=== PATIENT | male | born 1950 | race Caucasian/White ===

== ENCOUNTER 2017-10-22 07:31 | Day surgery (SDC) | payer MEDICARE, OTHER, SELFPAY ==
[2017-10-22] VITALS (14 sets, daily range): BP systolic 115–164; BP diastolic 49–83; PULSE 51–70; RESP 18–20; TEMP 36.6; O2SAT 92–98; BMI 32.4
--- NOTE | 2017-10-22 | IR_ITS ---
DATE OF CATHETERIZATION:10/22/2017 11:43 AM PROCEDURE: 1. Catheter placement in the right common iliac artery 2. Right common iliac artery angiogram with unilateral runoff to the right foot 3. Catheter placement in the left common iliac artery 4. Left common iliac artery angiogram with unilateral runoff to the left foot 5. Bare-metal stent deployment to the left common iliac artery 6. Post stent deployment left common iliac artery angiogram INDICATION: 1. Peripheral artery disease 2. Montezuma class III claudication Informed consent was obtained prior to the procedure. COMPLICATIONS: None ESTIMATED BLOOD LOSS: Blood loss less than 10 cc. TECHNIQUE:1% lidocaine used to anesthetize the right anterior aspect of the right wrist. The right radial artery was accessed via the Seldinger technique and a 6 Uzbek hydrophilic sheath was placed in the right radial artery. An arterial cocktail using heparin nitroglycerin and verapamil were administered intra-arterially. A BARGER catheter was placed in the transverse aorta and the wire was placed distally into the distal abdominal aorta. Using a long multipurpose catheter the catheter was advanced over the wire and used to cannulate the right common iliac artery. Right common iliac artery angiography with unilateral runoff to the foot was performed. The catheter was pulled back and placed into the left common iliac artery where angiography and unilateral runoff to the foot was performed. An additional 5000 units of heparin was administered intravenously. A 9 mm x 29 mm Aguilera pro balloon mounted stent was deployed in the ostial proximal segment of the left common iliac artery reducing the severe 80-90% stenosis to less than 10%. The balloon was brought back and deployed again at 16 shonda to post dilate. Excellent angiographic results were obtained. The closing ACT was 260 seconds. Patient artery received Plavix for the day. The apparatus was removed the sheath was removed good hemostasis was achieved using TR banding patient was transferred to the postop holding area in stable condition ANGIOGRAPHIC RESULTS: The right common iliac artery is calcified with tendon 20% stenoses. The right internal iliac artery is patent while the right external iliac artery has proximal 20-30% calcified stenosis. The right common femoral artery is normal. The right superficial femoral artery and right popliteal artery are occluded throughout their entire course. The right profunda femoris artery supplies a pregeniculate dense collateralization which then reconstitutes at the anterior tibialis artery and posterior tibialis artery. There is 2 vessel runoff below the knee from the 2 tibialis vessels into the right foot. The left common iliac artery has a proximal concentric 80% stenosis. The left internal iliac artery is widely patent. The left external iliac artery has a proximal 50% concentric stenosis. The left common femoral artery is calcified with no stenosis greater than 20%. The left superficial femoral artery is proximally subtotally occluded densely and severely calcified throughout its entire course. The occlusion extends throughout the popliteal artery. The left profunda femoris supplies a large collateral network which reconstitutes at the anterior and posterior tibialis artery. 2 vessel runoff below the knee is present from the tibialis arteries into the foot. Impression: Severe diffuse disease of the bilateral SFAs and bilateral popliteal arteries with chronic densely calcified occlusions Severe left common iliac artery stenosis Successful stenting the left common iliac artery 80% stenosis reduced to less than 10% with 1 bare-metal stent Dense collateral network which supplies the bilateral anterior and posterior tibialis arteries with bilateral 2 vessel runoff to
[2017-10-22 08:07] LABS: Basophils # 0.1 K/mm3 (0-0.2); Basophils % 0.6 % (0.1-2.0); Eosinophils # 0.2 K/mm3 (0.0-0.4); Eosinophils % 1.8 % (0.1-12.0); Hematocrit 44.5 % (42.0-52.0); Hemoglobin 15.4 g/dL (14.1-18.0); Lymphocytes # 1.7 K/mm3 (0.7-4.5); Mean Corpuscular HGB Conc 34.6 g/dL (31.8-35.4); Mean Corpuscular Hemoglobin 31.4 pg (27.0-31.2); Mean Corpuscular Volume 90.6 fl (80-94); Mean Platelet Volume 7.3 fl (7.4-10.4); Monocytes # 0.7 K/mm3 (0.1-1.0); Neutrophils # 5.8 K/mm3 (1.8-7.8); Neutrophils % 69.6 % (37.0-80.0); Platelet Count 187 K/mm3 (142-424); Red Blood Count 4.91 M/mm3 (4.60-6.20); Red Cell Distribution Width 14.1 % (11.5-17.5); White Blood Count 8.4 K/mm3 (4.8-10.8)
[2017-10-22 08:13] LABS: Anion Gap 10.7 mEq/L (5-15); Blood Urea Nitrogen 9 mg/dL (7-18); Carbon Dioxide 28 mmol/L (21.0-32.0); Chloride 90 mmol/L (98-107); Creatinine Clearance Estimated 82 mL/min (0-300); Creatinine,Serum 1.15 mg/dL (0.70-1.30); Estimated Glomerular Filt Rate 63 ml/min (>60); GFR (African American) 77 ML/MIN (>60); Potassium 3.7 mmoL/L (3.5-5.1); Sodium 125 mmol/L (136-145)
[2017-10-22 08:14] LABS: Glucose 98 mg/dL (74-106)
[2017-10-22 14:51] LABS: CATHL Activated Clotting Time 260 SEC (74-125)
== END 2017-10-22 15:30 | disposition home or self-care (01) ==
LOC: CATHLAB 07:33
PROVIDERS: PCP Family Medicine; Visit Provider Internal Medicine
DX: I73.9 Peripheral vascular disease, unspecified (principal); I70.223 Atherosclerosis of native arteries of extremities with rest pain, bilateral legs; I25.10 Atherosclerotic heart disease of native coronary artery without angina pectoris; I11.9 Hypertensive heart disease without heart failure; I65.29 Occlusion and stenosis of unspecified carotid artery
CPT/HCPCS: 36140; 37221; 75710; 80048; 85025; 85347; 99152; 99153; C1725; C1769; C1876; J1644; Q9966

== ENCOUNTER → 2017-10-30 08:19 | Outpatient (CLI) | payer MEDICARE, OTHER, SELFPAY ==
[2017-10-30 12:03] LABS: Alanine Aminotransferase 30 U/L (12-78); Alkaline Phosphatase 78 U/L (46-116); Aspartate Amino Transferase 19 U/L (15-37); Bilirubin,Direct 0.3 mg/dL (0.0-0.2); Bilirubin,Total 1.8 mg/dL (0.2-1.0); Chol/HDL Ratio 3.1 (1-3.5); Cholesterol 158 mg/dL (140-200); HDL Cholesterol 51 mg/dL (27-67); LDL Cholesterol 86 mg/dL (0-130); Total Protein,Serum 7.1 gm/dL (6.4-8.2); Triglycerides 103 mg/dL (30-200); VLDL Cholesterol 21 mg/dL (0-40)
== END ==
PROVIDERS: PCP Family Medicine; Visit Provider Internal Medicine
DX: E78.5 Hyperlipidemia, unspecified (principal)
CPT/HCPCS: 36415; 80061; 80076

== ENCOUNTER → 2017-11-03 15:24 | Outpatient (CLI) | payer MEDICARE, OTHER, SELFPAY ==
--- NOTE | 2017-11-03 15:24 | CI_ITS ---
Cerebrovascular Exam Indications: Follow-up carotid 433.10. IMPRESSIONS 1. The bilateral vertebral arteries are patent with normal antegrade flow. 2. Study suggests 50-69% stenosis involving the right internal carotid artery. 3. Study [id number]%(lower end of scale)stenosis involving the left internal carotid artery. 4. Study suggests severe stenosis involving the left external carotid artery. History: Coronary artery disease. Risk factors: Hypertension. Hyperlipidemia. Carotid duplex study. Complete study and Doppler flow study including spectral analysis, color and saucedo scale imaging. Height: Height: 172.7cm. Height: 68in. Weight: Weight: 90.7kg. Weight: 199.6lb. Body mass index: BMI: 30.4kg/m^2. Body surface area: BSA: 2.11m^2. Location: Vascular laboratory. Patient status: Outpatient. Tables: Arterial flow: + +--------+--------+ Location V sys V ed + +--------+--------+ Right CCA - proximal 108cm/s 22.8cm/s + +--------+--------+ Right CCA - distal 72.9cm/s 17.6cm/s + +--------+--------+ Right ECA 359cm/s 35.4cm/s + +--------+--------+ Right ICA - proximal 130cm/s 22.7cm/s + +--------+--------+ Right ICA - mid 181cm/s 41.5cm/s + +--------+--------+ Right ICA - distal 67.7cm/s 14cm/s + +--------+--------+ Right vertebral 39.3cm/s -------- + +--------+--------+ Left CCA - proximal 63.3cm/s 12.7cm/s + +--------+--------+ Left CCA - distal 41cm/s 10.5cm/s + +--------+--------+ Left ECA 428cm/s -------- + +--------+--------+ Left ICA - proximal 184cm/s 41.5cm/s + +--------+--------+ Left ICA - mid 182cm/s 33.7cm/s + +--------+--------+ Left ICA - distal 194cm/s 32.6cm/s + +--------+--------+ Left vertebral 66.2cm/s -------- + +--------+--------+ Velocity ratios: + + + + + + Right, V sys Right, V ed Left, V sys Left, V ed + + + + + + Max ICA/dist CCA 2.48 2.36 4.73 3.95 + + + + + + (Report amended ) Electronically signed by: Jm Sullivan [id number]
== END ==
PROVIDERS: PCP Family Medicine; Visit Provider Internal Medicine Cardiovascular Disease
DX: I65.23 Occlusion and stenosis of bilateral carotid arteries (principal)
CPT/HCPCS: 93880

== ENCOUNTER → 2018-06-14 14:11 | Outpatient (POV) | payer MEDICARE, OTHER, SELFPAY | PROVIDERS: Visit Provider Dermatology | DX: Z00.00 Encounter for general adult medical examination without abnormal findings (principal) ==

== ENCOUNTER → 2018-07-05 13:38 | Outpatient (POV) | payer MEDICARE, OTHER, SELFPAY | PROVIDERS: Visit Provider Dermatology | DX: Z00.00 Encounter for general adult medical examination without abnormal findings (principal) ==

== ENCOUNTER → 2019-01-14 09:54 | Outpatient (CLI) | payer MEDICARE, OTHER, SELFPAY ==
[2019-01-14 11:24] LABS: Alanine Aminotransferase 44 U/L (12-78); Albumin Level 3.9 gm/dL (3.4-5.0); Alkaline Phosphatase 72 U/L (46-116); Aspartate Amino Transferase 37 U/L (15-37); Bilirubin,Direct 0.3 mg/dL (0.0-0.2); Bilirubin,Indirect 1.4 mg/dL (0.0-0.9); Bilirubin,Total 1.7 mg/dL (0.2-1.0); Chol/HDL Ratio 2.7 (1-3.5); Cholesterol 160 mg/dL (140-200); HDL Cholesterol 60 mg/dL (27-67); LDL Cholesterol 73 mg/dL (0-130); Total Protein,Serum 6.9 gm/dL (6.4-8.2); Triglycerides 133 mg/dL (30-200); VLDL Cholesterol 27 mg/dL (0-40)
== END ==
PROVIDERS: Visit Provider Urology
DX: E78.5 Hyperlipidemia, unspecified (principal); I25.10 Atherosclerotic heart disease of native coronary artery without angina pectoris
CPT/HCPCS: 36415; 80061; 80076

== ENCOUNTER → 2019-12-25 14:52 | Outpatient (CLI) | payer MEDICARE, OTHER, SELFPAY ==
--- NOTE | 2019-12-25 15:02 | XR_ITS ---
PROCEDURE: XR FOOT RT MIN 3V CLINICAL INDICATION: RT FOOT PAIN Pain following injury COMPARISON: No exams were available for comparison FINDINGS: No fracture or dislocation. No lytic or blastic change. There is normal mineralization. The joint spaces are well-preserved. No significant degenerative/arthritic changes. No erosive changes evident. Other findings:There is a small calcaneal spur. There is minimal spurring of the distal talus IMPRESSION: No acute findings. Dictated by: Jm Sullivan MD 12/25/2019 16:23 Electronically signed by Jm Sullivan MD in [place] 12/25/2019 16:23
== END ==
PROVIDERS: PCP Family Medicine; Visit Provider Family Medicine
DX: M79.671 Pain in right foot (principal)
CPT/HCPCS: 73630

== ENCOUNTER 2020-01-08 11:46 | Emergency (ER) | payer MEDICARE, OTHER, SELFPAY ==
[2020-01-08 11:55] VITALS: BP 137/84; PULSE 68; RESP 18; TEMP 36.8; O2SAT 92; BMI 29.9
--- NOTE | 2020-01-08 12:04 | XR_ITS ---
PROCEDURE: XR FOOT RT MIN 3V Patient Age:69Y CLINICAL INDICATION: INJURY, REDNESS, SWELLING, PAIN injury to right foot 2 weeks ago persistent pain redness and swelling. COMPARISON: FTL3 FOOT-LT-3 VIEWS from 04/25/2015 XR FOOT RT MIN 3V from 12/25/2019 FINDINGS: Right foot AP lateral oblique view-three views No fracture or dislocation right foot.. Diffuse soft tissue swelling the foot is most pronounced dorsally over the midfoot.. Tarsals, metatarsals intact. Toes appear intact with no fracture evident. Toes intact with no fracture. No lytic or blastic change. There is normal mineralization. The joint spaces are well-preserved. There are some early hypertrophic changes minimal hypertrophic spur off lateral plantar margin of corner, base proximal phalanx great toe. There is also a near 10 mm plantar calcaneal spur noted IMPRESSION: Right foot-no fracture evident but Soft tissue swelling right foot-most evident dorsal aspect of foot overlying the metatarsals the Dictated by: Dilshad Edgar MD 01/08/2020 17:13 Electronically signed by Dilshad Edgar MD in [place] 01/08/2020 17:13
[2020-01-08 12:11] VITALS: BP 140/82; PULSE 72; RESP 20; O2SAT 98
--- NOTE | 2020-01-08 12:57 | CT_ITS ---
PROCEDURE: CT FOOT RT WO CON Patient Age:69Y CLINICAL HISTORY: pain, right foot redness pain swelling most evident top of foot. The heavy object fell on foot 2 weeks ago. The COMPARISON: ANKR3 ANKLE-RT-3 VIEWS from 09/13/2015 XR FOOT RT MIN 3V from 12/25/2019 XR FOOT RT MIN 3V from 01/08/2020 the TECHNIQUE: IV contrast utilized Helical axial images obtained through right foot with axial sagittal and coronal reformats. All CT scans at the facility use one or more dose reduction, viz: automated exposure control, ma/kV adjustment per patient size (including targeted exams where dose is matched to indication, i.e. head), or iterative reconstruction technique. FINDINGS: NECT right foot compared to 01/08/2020 and December 24 plain films Diffuse soft tissue swelling at the foot most evident dorsal. No radiopaque foreign body is seen here. I understand there is focal trauma. No fracture evident. Tarsals, metatarsals intact. Toes intact.. Joint spaces well maintained At the base of the 4th proximal phalanx there are some cystic areas seen on plain film but these are not readily apparent on CT the joint spaces well maintained At the base of the proximal phalanx great toe there is some hypertrophic spurring off the plantar/lateral aspect of from base proximal phalanx 4th toe at 1st MTP joint. Minimal slight fragment, appearance longstanding at the distal margin sesamoid bone plantar aspect 1st MTP joint At the ankle of note roughening and mild hypertrophic changes off tip of the medial malleolus. Associated roughening/of along medial margin of the talus. This was seen on 2016 plain films right ankle and appear stable. This reflects old trauma and injury. No acute findings. Incidental note plantar calcaneal spur a which measures nearly 1 cm length IMPRESSION: 1.Diffuse soft tissue swelling foot-most evident dorsal.. No radiopaque foreign body. 2.. No fracture nor dislocation.. No osseous erosion or destruction.. The. No with the the the 3..Mild degenerative changes foot and ankle.: .. Old injury with roughening hypertrophic changes off tip medial malleolus/and about medial ankle. Appears stable since at least 2016 radiograph .. Mild hypertrophic spurring off plantar/lateral margin proximal phalanx great toe,1st MTP joint 4. Plantar calcaneal spur (*If foot pain should persist/progress further consider MRI of foot-as it is more sensitive to bone contusion and microfractures than is CT) Dictated by: Dilshad Edgar MD 01/08/2020 15:22 Electronically signed by Dilshad Edgar MD in [place] 01/08/2020 15:22
--- NOTE | 2020-01-08 12:59 | PC.NURSE ---
Pt up to restroom
[2020-01-08 13:19] VITALS: BP 114/63; PULSE 66; O2SAT 95
--- NOTE | 2020-01-08 13:30 | PC.NURSE ---
Pt to rad.
--- NOTE | 2020-01-08 14:57 | HMH.EDLOEX ---
ED Disposition Clinical Impression: Ankle sprain and strain Disposition: Home, Self-Care Condition on Discharge: Good Instructions: Sprain Referrals: Tierra Snell MD [Primary Care Provider] - - Critical Care Critical Care Time: No Attestation: On 01/08/20, the high probability of a clinically significant, sudden or life threatening deterioration of the following system(s) required my full and direct attention, intervention and personal management. The time I documented below is in addition to time spent performing reported procedures but includes the following listed in this critical care notation. Medical Decision Making - Medical Records Medical records reviewed: Yes: I reviewed the patient's medical records. - Domo Inquiry Pt receiving controlled substance: No Vital Signs: 01/08/20 11:55 01/08/20 12:11 01/08/20 13:19 Temperature 98.2 F Temperature Source Oral Pulse Rate [Right Radial] 68 72 66 Respiratory Rate 18 20 Blood Pressure [Right Arm] 137/84 140/82 114/63 Blood Pressure Mean [Right Arm] 101 101 80 Blood Pressure Source [Right Arm] Automatic Cuff Automatic Cuff Automatic Cuff Blood Pressure Position [Right Arm] Sitting Sitting Sitting 02 Sat by Pulse Oximetry 92 L 98 95 Oxygen Delivery Method Room Air Room Air - Lab Data Lab results reviewed: Yes: I reviewed the patient's lab results. Orders (Tests/Meds): ED MEDICATIONS Discontinued Medications Generic Name Dose Route Start Last Admin Trade Name Freq PRN Reason Stop Dose Admin Oxycodone/Acetaminophen 1 each 01/08/20 13:20 01/08/20 13:23 Percocet 10mg/325mg Tablet PO 01/08/20 13:21 1 each ONCE ONE Administration ORDERS Category Date Time Status CT foot RT wo con Stat Cat Scan 01/08/20 12:57 Taken XR foot RT min 3V Stat Exams 01/08/20 12:04 Taken - CT Data CT Scan: Other Time Received: 14:[address] Reviewed: Yes: I have viewed the radiologist's interpretation Preliminary Findings: Normal/NAD Lower Extremity Injury HPI - General Chief Complaint: Extremity Injury, Lower Stated Complaint: AO [id number] right foot pain Time Seen by Provider: 01/08/20 14:50 Mode of Arrival: Ambulatory Source of Information: Patient Limitations: No Limitations Description of Symptoms (Recalled from ER Triage Doc. by RN): PT C/O RT FOOT PAIN AFTER DROPPING A JAR OF PICKLES ON HIS FOOT ON 12/24.PT REPORTS HX OF CAD AND STATES THAT THE BRUISING, SWELLING, REDNESS AND PAIN HAS ONLY INCREASED SINCE INITIAL INJURY. - History of Present Illness HPI Narrative: 6-year-old male presents the ED with right foot pain. Apparently about a week ago he dropped a jar of pickles on his foot and since then has been complaining of foot pain he did go see his primary care physician and they did do an x-ray of the foot but everything did come back within normal limits no evidence of fracture. Here in the ED still complaining of pain otherwise no other acute issues. - Related Data Home Medications Medication Instructions Recorded Confirmed aspirin 81 mg tablet,delayed 81 mg PO ONCE 09/17/17 04/18/19 release Previous Rx's Medication Instructions Recorded triamterene 37.5 1 tab PO QAM #90 tab 02/20/19 mg-hydrochlorothiazide 25 mg tablet clopidogrel 75 mg tablet 75 mg PO DAILY #90 tab 05/04/19 ropinirole 1 mg tablet 1 mg PO BID #180 tab 07/17/19 bisoprolol fumarate 5 mg tablet 5 mg PO DAILY #90 tab 07/18/19 amlodipine 10 mg-benazepril 20 mg 1 cap PO DAILY #90 cap 08/21/19 capsule atorvastatin 40 mg tablet 40 mg PO DAILY #90 tab 10/17/19 Allergies Allergy/AdvReac Type Severity Reaction Status Date / Time No Known Allergies Allergy Verified 10/17/19 08:44 [facility] History - Hepatitis A Screen Drug use history?: No High risk sexual behaviors?: No History of sexually transmitted infection?: No Currently employed?: No Childcare worker?: No Do you have indoor plumbing?: Yes Do you have electricity?: Y
[2020-01-08 15:21] VITALS: BP 114/63; PULSE 66; RESP 20; TEMP 36.9; O2SAT 95
== END 2020-01-08 16:20 | disposition home or self-care (01) ==
PROVIDERS: Emergency Provider Family Medicine; PCP Family Medicine
DX: S93.401A Sprain of unspecified ligament of right ankle, initial encounter (principal); W22.8XXA Striking against or struck by other objects, initial encounter; Y92.019 Unspecified place in single-family (private) house as the place of occurrence of the external cause; I25.10 Atherosclerotic heart disease of native coronary artery without angina pectoris; E78.5 Hyperlipidemia, unspecified; I10 Essential (primary) hypertension; Z87.891 Personal history of nicotine dependence; Z95.5 Presence of coronary angioplasty implant and graft; G25.81 Restless legs syndrome; Z90.09 Acquired absence of other part of head and neck; Z90.49 Acquired absence of other specified parts of digestive tract; Z79.899 Other long term (current) drug therapy
CPT/HCPCS: 29515; 73630; 73700; 99284

== ENCOUNTER → 2020-04-02 07:42 | Outpatient (CLI) | payer MEDICARE, OTHER, SELFPAY ==
--- NOTE | 2020-04-02 07:54 | XR_ITS ---
PROCEDURE: XR CHEST PORTABLE CLINICAL HISTORY: COVID COMPARISON: No exams were available for comparison FINDINGS: The cardiomediastinal silhouette and pulmonary vascularity are within normal limits. The lungs are clear without infiltrates, suspicious nodules, or pleural effusions. No acute bony abnormalities. IMPRESSION: No acute findings. Dictated by: Dr. Andi Orellana MD 04/02/2020 08:45 Dr. Andi Orellana MD in 04/02/2020 08:45
[2020-04-02 08:48] LABS: Basophils % 0.5 % (0.1-2.0); Eosinophils # 0.1 K/mm3 (0.0-0.4); Eosinophils % 1.5 % (0.1-12.0); Hematocrit 36.6 % (42.0-52.0); Hemoglobin 12.9 g/dL (14.1-18.0); Lymphocytes # 1.5 K/mm3 (0.7-4.5); Lymphocytes % 17.3 % (10-50); Mean Corpuscular HGB Conc 35.3 g/dL (31.8-35.4); Mean Corpuscular Hemoglobin 34.1 pg (27.0-31.2); Mean Corpuscular Volume 96.6 fl (80-94); Mean Platelet Volume 7.6 fl (7.4-10.4); Monocytes # 0.6 K/mm3 (0.1-1.0); Monocytes % 6.7 % (1.7-9.3); Neutrophils # 6.6 K/mm3 (1.8-7.8); Platelet Count 150 K/mm3 (142-424); Red Blood Count 3.79 M/mm3 (4.60-6.20); Red Cell Distribution Width 15.7 % (11.5-17.5); White Blood Count 8.9 K/mm3 (4.8-10.8)
== END ==
PROVIDERS: PCP Family Medicine; Visit Provider Family Medicine
DX: Z20.828 Contact with and (suspected) exposure to other viral communicable diseases (principal); E78.5 Hyperlipidemia, unspecified
CPT/HCPCS: 36415; 71045; 85025; U0003

== ENCOUNTER → 2020-05-01 12:46 | Outpatient (CLI) | payer MEDICARE, OTHER, SELFPAY ==
--- NOTE | 2020-05-01 12:47 | CA_ITS ---
APPROVED REPORT Tow Driver: Kitty Jones RVT Laterality: Bilateral Study Quality: Adequate Indications: Carotid stenosis Risk Factors Hypertension: Smoking Doppler Spectral Velocity Analysis ECA (R) 201.60/8.70 cm/s ECA (L) 92.90/14.90 cm/s dICA (R) 174.30/25.70 cm/s dICA (L) 188.50/22.60 cm/s Fredy (R) 152.60/21.60 cm/s Fredy (L) 178.70/26.50 cm/s pICA (R) 100.60/11.20 cm/s pICA (L) 383.10/37.30 cm/s dCCA (R) 68.40/9.60 cm/s dCCA (L) 48.30/10.00 cm/s pCCA (R) 73.60/8.10 cm/s pCCA (L) 80.30/9.30 cm/s Vert (R) 35.00/8.20 cm/s Vert (L) 62.80/9.80 cm/s ICA/CCA 2.55 ICA/CCA 7.93 Findings Study suggests 50-69% stenosis of the right internal cartoid artery unchanged from the 11/03/17 study. Study suggests 70-99% stenosis of the left internal cartoid artery unchanged from the 11/03/17 study. Antegrade flow seen bilateral vertebral arteries. Conclusion Study suggests 50-69% stenosis of the right internal cartoid artery unchanged from the 11/03/17 study. Study suggests 70-99% stenosis of the left internal cartoid artery unchanged from the 11/03/17 study. Antegrade flow seen bilateral vertebral arteries. Electronically signed by : Jm Sullivan MD 05/01/2020 17:02:50
== END ==
PROVIDERS: PCP Family Medicine; Visit Provider Urology
DX: E78.5 Hyperlipidemia, unspecified (principal); I11.9 Hypertensive heart disease without heart failure; I25.10 Atherosclerotic heart disease of native coronary artery without angina pectoris; I77.9 Disorder of arteries and arterioles, unspecified; R09.89 Other specified symptoms and signs involving the circulatory and respiratory systems; I65.23 Occlusion and stenosis of bilateral carotid arteries
CPT/HCPCS: 93880

== ENCOUNTER → 2020-06-08 09:51 | Outpatient (CLI) | payer MEDICARE, OTHER, SELFPAY | PROVIDERS: PCP Family Medicine; Visit Provider Urology | DX: J06.9 Acute upper respiratory infection, unspecified (principal); R05 Cough; Z03.818 Encounter for observation for suspected exposure to other biological agents ruled out | CPT/HCPCS: U0003 ==

== ENCOUNTER → 2020-06-10 11:01 | Outpatient (CLI) | payer MEDICARE, OTHER, SELFPAY ==
--- NOTE | 2020-06-10 11:07 | XR_ITS ---
PROCEDURE: XR CHEST 2V CLINICAL HISTORY: cough Cough and former smoker COMPARISON: CR XR CHEST PORTABLE from 04/02/2020 FINDINGS: The cardiomediastinal silhouette and pulmonary vascularity are within normal limits. There is slight increased density in the right upper lobe consistent with pneumonia or atelectatic change. The minor fissure is slightly bowed superiorly suggesting volume loss. There is some increased density in the right hilar region. Cannot exclude the possibility of a central obstructing lesion. Chest CT with contrast may provide further evaluation. The left lung is clear. No acute bony findings. There is an area of increased density overlying the T8 vertebral body posteriorly possibly due to pulmonary nodule or bony lesion. IMPRESSION: 1. Right upper lobe infiltrate and/or atelectatic change. 2. Increased density in the right hilum. Possible right hilar mass as well as nodular density overlying the T8 vertebral body. Recommend chest CT with contrast for further evaluation. Dictated by: Jm Sullivan MD 06/10/2020 11:53 Jm Sullivan MD in [place] 06/10/2020 11:53
== END ==
PROVIDERS: PCP Family Medicine; Visit Provider Internal Medicine
DX: R05 Cough; R94.31 Abnormal electrocardiogram [ECG] [EKG]
CPT/HCPCS: 71046

== ENCOUNTER → 2020-06-19 16:42 | Outpatient (CLI) | payer MEDICARE, OTHER, SELFPAY ==
--- NOTE | 2020-06-19 | XR_ITS ---
PROCEDURE: XR CHEST 2V CLINICAL HISTORY: Shortness of air with cough and chest pain COMPARISON: CR XR CHEST PORTABLE from 04/02/2020 DX XR CHEST 2V from 06/10/2020 FINDINGS: The cardiomediastinal silhouette and pulmonary vascularity are within normal limits. There is increased density in the right hilum with right upper lobe pneumonia or volume loss. Hilar mass with postobstructive changes is considered. Suggest chest CT with contrast for further evaluation. Overall no significant change from 06/10/2020. There remains increased density overlying the T7 vertebral body on the lateral view. No acute bony abnormalities. IMPRESSION: No change prominent right hilum with right upper lobe pneumonia/volume loss. Suggest CT with contrast to exclude right hilar mass along with possible nodule in the superior segment of the right lower lobe Dictated by: Jm Sullivan MD 06/20/2020 06:03 Jm Sullivan MD in [place] 06/20/2020 06:03
== END ==
PROVIDERS: PCP Family Medicine; Visit Provider Family Medicine
DX: R93.89 Abnormal findings on diagnostic imaging of other specified body structures (principal)
CPT/HCPCS: 71046

== ENCOUNTER → 2020-06-20 11:05 | Outpatient (CLI) | payer MEDICARE, OTHER, SELFPAY ==
--- NOTE | 2020-06-20 11:06 | CA_ITS ---
APPROVED REPORT EXAM: Comprehensive 2D, Doppler, and color-flow Echocardiogram Dyeing Machine Feeder: Maris Brown RDCS Ht: 5 ft 7 in Wt: 193lbs BSA: 1.99 BP: 103/59 mmHg Indications: SOA,COUGH,PAD,HTN,ETOH ABUSE 2D Dimensions LVOT 2.15 cm (M/F) 1.5-2.5 M-Mode Dimensions RVDd 2.89 cm (0.9-2.6) LA Diam 3.58 cm (1.9-4.0) LVDd 5.17 cm (3.5-5.7) Ao Diam 2.90 cm (2.0-3.7) LVDs 4.03 cm (3.5-5.7) IVSd 0.72 cm (0.6-1.1) PWd 0.91 cm (0.6-1.1) EF (Teich) 44.20% FS 22.10% EDV (Teich) 127.80 mL ESV (Teich) 71.30 mL LV Diastology E Decel Time 173.00 (160-240 msec) E/A Ratio 0.6 MED E' 6.40 (< 7 cm/sec) E'/MED E' Ratio 9.11 (>14) LAT E' 4.70 (<10 cm/sec) E/LAT E' Ratio 12.40 (>14) Aortic Valve LVOT Max 89.00 (70-110 cm/s) LVOT VTI 22.75 cm AoV Peak Mat. 179.00 (50-130 cm/s) AO Peak GR. 12.80 mmHg AO Mean GR. 8.40 (<5 mmHg) AO VTI 45.22 (18-25 cm) CHRISTIAN (VTI) 1.83 (2.5-4.5 cm2) Mitral Valve MV E Max Mat. 58.00 (40-130 cm/s) MV A Velocity 91.00 (40-130 cm/s) E/A Ratio 0.64 MV Decel. Time 173.00 (160-240 ms) MV PHT 51.00 ms Left Ventricle Left atrium is mildly enlarged, left ventricle is normal size, mild concentric left ventricular hypertrophy, visually estimated ejection fraction 55% with no regional wall motion abnormality, grade 1 diastolic dysfunction seen with tissue Doppler evidence of raise left atrial pressure. Right Ventricle Right atrium and right ventricle are mildly enlarged with normal contractility. Aortic Valve Aortic valve is minimally thickened and fibrosed, there is no aortic stenosis or aortic insufficiency. Mitral Valve Mitral valve grossly normal, there is mild mitral regurgitation. Tricuspid Valve Tricuspid valve grossly normal, there is mild tricuspid regurgitation, tricuspid regurgitation jet velocity is inadequate for calculation of the right ventricular systolic pressure. Pulmonic Valve Pulmonic valve is poorly visualized. Great Vessels Aortic root is normal size. Pericardium Small pericardial effusion and anterior echo-free space seen. Conclusion 1. Mild biatrial enlargement, normal left ventricular size, mild concentric left ventricular hypertrophy, visually estimated ejection fraction 55% with no regional wall motion abnormality, grade 1 diastolic dysfunction seen with tissue Doppler evidence of raise left atrial pressure. 2. Mildly enlarged right ventricle with normal contractility. 3. Mild mitral and tricuspid regurgitation. 4. Small pericardial effusion and anterior echo-free space seen. Electronically signed by : Ubaldo Morrison, 06/20/2020 16:18:03
== END ==
PROVIDERS: PCP Psychiatry & Neurology Sleep Medicine; Visit Provider Nurse Practitioner Family
DX: E78.5 Hyperlipidemia, unspecified (principal); I11.9 Hypertensive heart disease without heart failure; I25.10 Atherosclerotic heart disease of native coronary artery without angina pectoris; I44.0 Atrioventricular block, first degree; I77.9 Disorder of arteries and arterioles, unspecified; R05 Cough; R09.89 Other specified symptoms and signs involving the circulatory and respiratory systems; R94.31 Abnormal electrocardiogram [ECG] [EKG]; R06.00 Dyspnea, unspecified
CPT/HCPCS: 93306

== ENCOUNTER → 2020-07-05 11:01 | Outpatient (CLI) | payer MEDICARE, OTHER, SELFPAY ==
--- NOTE | 2020-07-05 12:12 | CT_ITS ---
PROCEDURE: CT ANGIO CHEST CLINCIAL INDICATION: PE protocol Cough, abnormal chest x-ray, abnormal chest x-ray COMPARISON: CT CTAN CTA-NECK from 01/15/2015 CR XR CHEST 2V from 06/19/2020 TECHNIQUE: IV Contrast: 70ML Isovue 370 Axial images obtained with sagittal and coronal reformats. All CT scans at the facility use one or more dose reduction, viz: automated exposure control, ma/kV adjustment per patient size (including targeted exams where dose is matched to indication, i.e. head), or iterative reconstruction technique. FINDINGS: There is a large mass epicentered in the right hilar/mediastinal region. This mass measures up to 6.9 cm AP and 7.3 cm transverse and 5.7 cm cephalad caudad. The mass encases the superior segmental branch of the right upper lobe pulmonary artery with severe constriction of that vessel. The mass also nearly and compresses the main right pulmonary artery being cyst along the superior posterior and inferior aspect of the right pulmonary artery but not along the anterior aspect. There is narrowing of the right main pulmonary artery secondary to the mass. This mass begins in the pretracheal region at the level of the aortic arch and extends inferiorly along the precarinal and subcarinal region and along the right hilum. There is moderate to severe narrowing of the bronchus intermedius in there is severe narrowing and short segment occlusion of the posterior segmental branch of the right upper lobe bronchus. Postobstructive pneumonitis is present in the right upper lobe posteriorly. Mass abuts the posterior aspect of the superior vena cava with some narrowing of the SVC. No evidence of occlusion. Coronary artery calcifications are present. There is no evidence of pulmonary embolus. There are post obstructive changes of the right upper lobe. In the superior and posterior aspect of the right upper lobe there are 2 nodules along the major fissure the largest at 12 mm suspicious for metastatic foci. There are patchy areas of infiltrate in the right middle lobe with tree in bud pattern. Patchy infiltrate is present also in the right lower lobe anteriorly there is a subpleural 5 mm nodule in the lingula. Subpleural opacity left lower lobe anteriorly nonspecific. No effusions are evident. There is a destructive mass involving the T3 vertebral body on the right. This soft tissue mass measures 3.8 x 3.4 cm with invasion and destruction of the medial aspect of the right 3rd rib, the posterior aspect of the T3 vertebral body, the right pedicle of T3 and lamina extending into the base the spinous process. The mass extends into the spinal canal on the right causing canal stenosis. Obstruction of the inferior facet of T2 on the right. Lytic lesion is present within the central and superior and posterior aspect of the TT at 9 mm. There are numerous hypodense lesions of the liver both right and left hepatic lobe measuring up to 5 cm. IMPRESSION: Right-sided mediastinal and hilar mass as described above consistent with neoplasm with metastatic disease to the right upper lobe, liver, and T2 and T3 with a right paraspinal mass epicentered at T3 with destruction of the right 3rd rib medially and extension into the spinal canal. These findings are consistent with lung cancer with metastasis. Percutaneous CT directed biopsy could be performed of the T3 mass if clinically desired There is pneumonia in the right middle and right lower lobe and postobstructive changes in the right upper lobe. Dictated by: Jm Sullivan MD 07/06/2020 10:07 Jm Sullivan MD in [place] 07/06/2020 10:07
[2020-07-05 12:57] LABS: Alanine Aminotransferase 26 U/L (12-78); Aspartate Amino Transferase 44 U/L (17-59); Blood Urea Nitrogen 28 mg/dl (9-20); Cholesterol 186 mg/dl (140-200); Estimated Glomerular Filt Rate 46 ml/min (>60); GFR (African American) 56 ML/MIN (>60); Triglycerides 187 mg/dl (30-150); VLDL Cholesterol 37 mg/dL (0-40)
[2020-07-05 12:58] LABS: Albumin Level 4.2 g/dl (3.5-5.0); Alkaline Phosphatase 149 U/L (38-126); Bilirubin,Direct 0.4 mg/dl (0.0-0.4); Bilirubin,Indirect 0.9 mg/dL (0.0-0.9); Bilirubin,Total 1.3 mg/dl (0.2-1.3); Chol/HDL Ratio 4.7 (1-3.5); HDL Cholesterol 40 mg/dl (40-60); Total Protein,Serum 7.2 g/dl (6.3-8.2)
[2020-07-05 13:09] LABS: Direct LDL Cholesterol 111.42 mg/dL (100-129)
== END ==
PROVIDERS: Urology; PCP Family Medicine; Visit Provider Internal Medicine Pulmonary Disease
DX: R06.00 Dyspnea, unspecified (principal); E78.5 Hyperlipidemia, unspecified; I11.9 Hypertensive heart disease without heart failure; I25.10 Atherosclerotic heart disease of native coronary artery without angina pectoris; I77.9 Disorder of arteries and arterioles, unspecified; R09.89 Other specified symptoms and signs involving the circulatory and respiratory systems; R05 Cough; R06.2 Wheezing; R93.89 Abnormal findings on diagnostic imaging of other specified body structures; Z87.891 Personal history of nicotine dependence; I65.23 Occlusion and stenosis of bilateral carotid arteries
CPT/HCPCS: 36415; 71275; 80061; 80076; 82565; 84520; 94618; Q9967

== ENCOUNTER → 2020-07-17 12:10 | Outpatient (CLI) | payer MEDICARE, OTHER, SELFPAY ==
--- NOTE | 2020-07-17 12:11 | CT_ITS ---
PROCEDURE: CT BIOPSY GUIDED NEEDLE CLINICAL HISTORY: biopsy, T3 spinal mass Mediastinal mass with metastatic disease to the liver and spine. Tissue diagnosis desired. COMPARISON: CT CT ANGIO CHEST from 07/05/2020 TECHNIQUE: Axial images obtained with sagittal and coronal reformats. All CT scans at the facility use one or more dose reduction, viz: automated exposure control, ma/kV adjustment per patient size (including targeted exams where dose is matched to indication, i.e. head), or iterative reconstruction technique. FINDINGS: Pre biopsy images once again demonstrates the destructive lesion to the right aspect of the T3 vertebral body and costovertebral junction. Mediastinal mass, pulmonary nodules, and multiple liver lesions also noted on the pre biopsy exam. Following obtaining informed consent and time-out procedure under aseptic conditions and local anesthesia with 1 percent buffered lidocaine and conscious sedation with 1 mg of Versed and 50 mcg of fentanyl, the patient was placed in the prone position and the paraspinal mass localized and skin marked for biopsy. Skin akin was performed and 18 gauge introducer needle inserted. Charli-Cut biopsy is performed through the introducer needle along with FNA from the introducer needle. Pathologist was present and confirm the tissue. The patient tolerated the procedure well without evidence of immediate complications and left radiology suite in stable condition. Pathology: Metastatic squamous cell carcinoma IMPRESSION: Uneventful CT-guided paraspinal mass biopsy demonstrating metastatic squamous cell carcinoma. Dictated by: Jm Sullivan MD 07/23/2020 10:34 Jm Sullivan MD in [place] 07/23/2020 10:34
[2020-07-17 12:26] VITALS: BMI 27.9
[2020-07-17 13:07] LABS: Basophils # 0.1 K/mm3 (0-0.2); Basophils % 0.5 % (0.1-2.0); Eosinophils # 0.2 K/mm3 (0.0-0.4); Eosinophils % 1.6 % (0.1-12.0); Hematocrit 40.6 % (42.0-52.0); Hemoglobin 14.1 g/dL (14.1-18.0); Lymphocytes # 1.4 K/mm3 (0.7-4.5); Lymphocytes % 10.9 % (10-50); Mean Corpuscular HGB Conc 34.6 g/dL (31.8-35.4); Mean Corpuscular Volume 89.5 fl (80-94); Mean Platelet Volume 7.7 fl (7.4-10.4); Monocytes # 0.6 K/mm3 (0.1-1.0); Monocytes % 4.8 % (1.7-9.3); Neutrophils # 10.9 K/mm3 (1.8-7.8); Neutrophils % 82.2 % (37.0-80.0); Platelet Count 290 K/mm3 (142-424); Red Blood Count 4.53 M/mm3 (4.60-6.20); Red Cell Distribution Width 14.5 % (11.5-17.5); White Blood Count 13.3 K/mm3 (4.8-10.8)
[2020-07-17 13:16] LABS: INR 1.03 (0.9-1.1); Prothrombin Time 11.4 seconds (9.4-11.8)
[2020-07-17 13:30] LABS: Activated Partial Thrombo Time 22.9 seconds (23.6-34.0)
--- NOTE | 2020-07-17 16:03 | XR_ITS ---
PROCEDURE: XR CHEST 2V CLINICAL HISTORY: S/P BX, DO ON EXPIRATION Follow-up thoracic biopsy COMPARISON: CR XR CHEST PORTABLE from 04/02/2020 DX XR CHEST 2V from 06/10/2020 CR XR CHEST 2V from 06/19/[address] ANGIO CHEST from 07/05/2020 FINDINGS: There is no evidence of pneumothorax. The study is obtained in expiration. There is some mild right apical pleural thickening likely accentuated by the expiration right paraspinal soft tissue mass noted at the T3 level. Right hilar mass also noted. There is some increased density in the right lower lobe which could be due to atelectasis from the expiration versus underlying infiltrate. The left lung is clear. Nodular opacity overlies the T8 vertebral body. IMPRESSION: No evidence of pneumothorax. Right apical pleural thickening with right paraspinal mass superiorly and right hilar mass consistent with lung cancer with metastasis to the right T3 area.. Pulmonary nodule overlying the T8 region. Possible right lower lobe infiltrate versus atelectatic change Dictated by: Jm Sullivan MD 07/17/2020 16:22 Jm Sullivan MD in [place] 07/17/2020 16:22
== END ==
PROVIDERS: PCP Family Medicine; Visit Provider Internal Medicine Pulmonary Disease
DX: M89.8X8 Other specified disorders of bone, other site (principal)
CPT/HCPCS: 71046; 77012; 85025; 85610; 85730; 88173; 88305; 88307; 88333; 88342

== ENCOUNTER 2020-07-20 16:54 | Inpatient (IN) | payer MEDICARE, OTHER, SELFPAY ==
[2020-07-20] VITALS (8 sets, daily range): BP systolic 115–158; BP diastolic 54–100; PULSE 76–102; RESP 12–20; TEMP 36.7–37.7; O2SAT 89–96; BMI 27.3; BMI 28.9
--- NOTE | 2020-07-20 17:09 | ECG_ITS ---
APPROVED REPORT Exam: Resting ECG HR:95 bpm ECG Measurements Heart Rate 95 AXES NJ 180 P 36 QRSd 72 QRS 23 QT 360 T 85 QTc 452 Conclusion Normal sinus rhythm Poor r wave progression ST & T wave abnormality,unchanged since 04/01 Abnormal ECG Electronically signed by : Fernandez Ramsey, 07/21/2020 19:56:04
--- NOTE | 2020-07-20 17:09 | XR_ITS ---
PROCEDURE: XR CHEST PORTABLE CLINICAL HISTORY: cough Cough and shortness of air COMPARISON: DX XR CHEST 2V from 06/10/2020 CR XR CHEST 2V from 06/19/[address] ANGIO CHEST from 07/05/2020 CR XR CHEST 2V from 07/17/2020 FINDINGS: The cardiomediastinal silhouette and pulmonary vascularity are within normal limits. Patchy infiltrate is present in the right upper lobe and right lower lobe. The remaining lungs are clear. No acute bony abnormalities. IMPRESSION: Right upper and right lower pneumonia Dictated by: Jm Sullivan MD 07/20/2020 22:21 Jm Sullivan MD in [place] 07/20/2020 22:21
--- NOTE | 2020-07-20 17:39 | HMH.EDAMS ---
ED Disposition Clinical Impression: Metabolic encephalopathy Sepsis Qualifiers: Sepsis type: sepsis due to unspecified organism Sepsis acute organ dysfunction status: with acute organ dysfunction Severe sepsis acute organ dysfunction type: encephalopathy Severe sepsis shock status: without septic shock Qualified Code(s): A41.9 - Sepsis, unspecified organism; R65.20 - Severe sepsis without septic shock; G93.40 - Encephalopathy, unspecified Right lower lobe pneumonia Qualifiers: Pneumonia type: due to unspecified organism Qualified Code(s): J18.9 - Pneumonia, unspecified organism Alcohol withdrawal Qualifiers: Complication of substance-induced condition: with perceptual disturbance Qualified Code(s): F10.232 - Alcohol dependence with withdrawal with perceptual disturbance Disposition: Admitted As Inpatient Condition on Discharge: Serious Instructions: DI for Altered Mental Status Referrals: Tierra Snell MD [Primary Care Provider] - - Critical Care Critical Care Time: Yes Attestation: On 07/20/20, the high probability of a clinically significant, sudden or life threatening deterioration of the following system(s) required my full and direct attention, intervention and personal management. The time I documented below is in addition to time spent performing reported procedures but includes the following listed in this critical care notation. Total Critical Care Time: 30 Vital system(s) involved:: Circulatory Failure, Central Nervous System, Metabolic Failure, Respiratory Failure My critical care processes included: Assessment & monitoring of V/S, Initial and Re-exams, Data Review/Interpretation, Coordinating Care, Medication Orders and management, Documentation Medical Decision Making - Medical Records Medical records reviewed: Yes: I reviewed the patient's medical records. - Domo Inquiry Pt receiving controlled substance: No Vital Signs: 07/20/20 17:25 07/20/20 18:09 Temperature 99.8 F H Temperature Source Oral Pulse Rate [Right Radial] 102 H 94 H Respiratory Rate 18 20 Blood Pressure [Right Arm] 158/73 H 131/61 Blood Pressure Mean [Right Arm] 101 84 02 Sat by Pulse Oximetry 89 L 96 Oxygen Delivery Method Room Air - Lab Data Lab Results 07/20/20 17:12: WBC 25.2 H*, RBC 3.97 L, Hgb 11.8 L, Hct 36.5 L, MCV 92.0, MCH 29.7, MCHC 32.3, RDW 14.7, Plt Count 215 D, MPV 7.2 L, Neut % (Auto) 92.0 H, Lymph % (Auto) 4.0 L, [place] % (Auto) 3.8, Eos % (Auto) 0.1, Baso % (Auto) 0.2, Neut # (Auto) 23.2 H, Lymph # (Auto) 1.0, [place] # (Auto) 1.0, Eos # (Auto) 0.0, Baso # (Auto) 0.1, Total Counted 100, Neutrophils % (Manual) 90 H, Lymphocytes % (Manual) 5 L, Monocytes % (Manual) 5, Platelet Estimate Normal, RBC Morphology Normal 07/20/20 17:12: Sodium 129 L, Potassium 4.1, Chloride 89 L, Carbon Dioxide 28, Anion Gap 16.1 H, BUN 25 H, Creatinine 1.20, Estimated Creat Clear 65, Estimated GFR 60, Est GFR ( Amer) 72, Glucose 112 H, Calcium 11.6 H, Total Bilirubin 2.4 H, AST 41, ALT 31, Alkaline Phosphatase 146 H, Troponin I < 0.01, Total Protein 7.8, Albumin 4.4, Globulin 3.4 H, Albumin/Globulin Ratio 1.3, Lipase 44, TSH 0.55 07/20/20 17:12: Plasma/Serum Alcohol < 10 07/20/20 17:12: PT 11.4, INR 1.03, APTT 23.5 L 07/20/20 17:12: Lactate 5.6 H 07/20/20 17:12: Ammonia < 9 L 07/20/20 17:12: NT-Pro-B Natriuret Pep 435 H 07/20/20 17:12: SARS-CoV-2 IgG Ab (Rapid) Negative, SARS-CoV-2 IgM Ab (Rapid) Negative 07/20/20 18:33: Specimen Source R/r, O2 % 2, ABG pH 7.45, ABG pCO2 33.4 L, ABG pO2 67.4 L, ABG HCO3 22.9, ABG Total CO2 23.9, ABG O2 Saturation 94, ABG Base Excess -1.0, Jm Test Y Result diagrams: 07/20/20 17:12 07/20/20 17:12 Orders (Tests/Meds): ED MEDICATIONS Generic Name Dose Route Start Last Admin Trade Name Freq PRN Reason Stop Dose Admin Folic Acid 1 mg 07/20/20 19:15 Folic Acid 1mg Tablet PO 08/19/20 19:14 DAILY WILLIAM Sodium Chloride 2,050 mls @ 1,025 mls/hr 07/20/20 18:11 07/20/20 17:3
[2020-07-20 18:01] LABS: Ammonia < 9 umol/L (9-30)
[2020-07-20 18:06] LABS: Chloride 89 mmol/L (98-107); Potassium 4.1 mmoL/L (3.5-5.1); Sodium 129 mmol/L (136-145)
[2020-07-20 18:07] LABS: Basophils # 0.1 K/mm3 (0-0.2); Basophils % 0.2 % (0.1-2.0); Eosinophils % 0.1 % (0.1-12.0); Hematocrit 36.5 % (42.0-52.0); Hemoglobin 11.8 g/dL (14.1-18.0); Mean Corpuscular HGB Conc 32.3 g/dL (31.8-35.4); Mean Corpuscular Hemoglobin 29.7 pg (27.0-31.2); Mean Platelet Volume 7.2 fl (7.4-10.4); Monocytes % 3.8 % (1.7-9.3); Neutrophils # 23.2 K/mm3 (1.8-7.8); Platelet Count 215 K/mm3 (142-424); Red Blood Count 3.97 M/mm3 (4.60-6.20); Red Cell Distribution Width 14.7 % (11.5-17.5); White Blood Count 25.2 K/mm3 (4.8-10.8)
[2020-07-20 18:08] LABS: Blood Urea Nitrogen 25 mg/dl (9-20); Creatinine Clearance Estimated 65 mL/min (50-200); Estimated Glomerular Filt Rate 60 ml/min (>60); GFR (African American) 72 ML/MIN (>60)
[2020-07-20 18:09] LABS: Activated Partial Thrombo Time 23.5 seconds (23.6-34.0); Alanine Aminotransferase 31 U/L (12-78); Albumin Level 4.4 g/dl (3.5-5.0); Albumin/Globulin Ratio 1.3 (1.1-1.8); Alkaline Phosphatase 146 U/L (38-126); Anion Gap 16.1 mEq/L (5-15); Aspartate Amino Transferase 41 U/L (17-59); Bilirubin,Total 2.4 mg/dl (0.2-1.3); Calcium 11.6 mg/dl (8.4-10.2); Carbon Dioxide 28 mmol/L (22.0-30.0); Globulin 3.4 g/dL (1.3-3.2); Glucose 112 mg/dl (74-100); INR 1.03 (0.9-1.1); Lipase 44 U/L (23-300); Prothrombin Time 11.4 seconds (9.4-11.8); Total Protein,Serum 7.8 g/dl (6.3-8.2)
[2020-07-20 18:10] LABS: Ethyl Alcohol < 10 mg/dl (0-10)
--- NOTE | 2020-07-20 18:10 | CT_ITS ---
PROCEDURE: CT HEAD/BRAIN WO CON CLINICAL INDICATION: soa Altered mental status, altered level of consciousness, confusion, disorientation, stage IV lung cancer COMPARISON: CT CT CHEST W CON from 07/20/2020 TECHNIQUE: Axial images obtained. All CT scans at the facility use one or more dose reduction, viz: automated exposure control, ma/kV adjustment per patient size (including targeted exams where dose is matched to indication, i.e. head), or iterative reconstruction technique. FINDINGS: No midline shift, mass effect, intracranial hemorrhage, hydrocephalus, or extra-axial fluid collection is evident. There is generalized atrophy with hypoattenuation of the periventricular white matter consistent with microangiopathic changes. There is an old small lacunar infarction in the right basal ganglia the calvarium has an unremarkable appearance. No mastoid effusion. No sinus air-fluid level IMPRESSION: No acute intracranial findings. Atrophy with chronic small vessel disease Dictated by: Jm Sullivan MD 07/20/2020 22:29 Jm Sullivan MD in [place] 07/20/2020 22:29
--- NOTE | 2020-07-20 18:10 | CT_ITS ---
PROCEDURE: CT CHEST W CON CLINCAL INDICATION: soa The shortness of air, follow-up. Stage IV lung cancer with metastatic disease COMPARISON: CT CT ANGIO CHEST from 07/05/[address] HEAD/BRAIN WO CON from 07/20/2020 TECHNIQUE: IV Contrast: 75ml Isovue 370 Axial images obtained with sagittal and coronal reformats. All CT scans at the facility use one or more dose reduction, viz: automated exposure control, ma/kV adjustment per patient size (including targeted exams where dose is matched to indication, i.e. head), or iterative reconstruction technique. FINDINGS: A large mediastinal mass once again noted as recently described in the precarinal, subcarinal and right hilar region. This is causing narrowing of the right mainstem bronchus which has progressed compared to the previous study. There is also narrowing with encasement of the superior segmental pulmonary artery and the right main pulmonary artery. The narrowing of the right main pulmonary artery has also worsened from the previous exam. The artery to the posterior segment of the right upper lobe may now be occluded. There is been interval development of diffuse pneumonia in the posterior segment of the right upper lobe with severe narrowing the right upper lobe bronchus. There is also severe narrowing of the bronchus intermedius which is progressed. There is a 6 mm noncalcified nodule in the right lower lobe. There are atelectatic changes in the right lower lobe. There is trace right-sided effusion. Mild gynecomastia. Numerous hepatic metastasis are once again noted. Lytic lesion of T3 and T4 vertebral body and medial aspect of the right 3rd rib once again noted and may be slightly larger with some increase destruction of the medial aspect of the right 3rd rib IMPRESSION: 1. Large mediastinal and right hilar mass as described above with some increase in narrowing of the right main pulmonary artery right upper lobe pulmonary artery and increased narrowing of the right bronchus intermedius with new postobstructive pneumonia in the right upper lobe. 2. Hepatic metastasis 3. Metastasis to the T3 and T4 vertebral body in the medial aspect of the right 3rd rib. This lesion may be slightly larger compared to the previous exam. Dictated by: Jm Sullivan MD 07/21/2020 07:32 Jm Sullivan MD in [place] 07/21/2020 07:32
[2020-07-20 18:11] LABS: Lactic Acid 5.6 mmol/L (0.7-2.1)
[2020-07-20 18:12] LABS: MANUAL DIFFERENTIAL MANUAL DIFFERENTIAL (MANUAL DIFF)
--- NOTE | 2020-07-20 18:12 | PC.NURSE ---
critical lactic reported to dr bearden. new orders received. see mar.
[2020-07-20 18:17] LABS: Lymphocytes % 5 % (10-50); Monocytes % 5 % (2-9); Neutrophils % 90 % (42-76); Total Cells Counted 100
[2020-07-20 18:18] LABS: Platelet Estimate Normal; RBC Morphology Normal
[2020-07-20 18:19] LABS: NT Pro Brain Natriuretic Pep. 435 pg/mL (0-125)
[2020-07-20 18:23] LABS: Coronavirus 19 IgG Antibody Negative (Negative); Coronavirus 19 IgM Antibody Negative (Negative); Troponin I < 0.01 ng/ml (0.00-0.034)
[2020-07-20 18:35] LABS: ABG HCO3 22.9 mmhg (22.0-26.0); ABG Oxygen Saturation 94 % (90-100); ABG PCO2 33.4 mmhg (35.0-45.0); ABG PH 7.45 mmol/L (7.35-7.45); ABG PO2 67.4 mmhg (80-100); ABG TCO2 23.9 mmhg (23-27); Allen's Test Y; Oxygen 2 %; Source R/R
[2020-07-20 18:40] LABS: Thyroid Stimulating Hormone 0.55 uIU/mL (0.465-4.68)
[2020-07-20 21:06] LABS: Troponin I < 0.01 ng/ml (0.00-0.034)
--- NOTE | 2020-07-20 21:11 | PC.NURSE ---
PT ARRIVED TO THE FLOOR VIA STRETCHER FROM ED W/STAFF @[id number]
[2020-07-20 21:50] LABS: Reflex Lactic Add Lactic Reflex
[2020-07-20 23:02] LABS: Lactic Acid Follow Up (RFLX 1) 2.8 mmol/L (0.7-2.1)
[2020-07-20 23:06] LABS: Microscopic, Urine URINE MICROSCOPIC (MICROSCOPIC)
[2020-07-20 23:08] LABS: Appearance,Urine CLEAR (Clear); Bilirubin,Urine Negative (Negative); Blood, Urine Negative (Negative); Color,Urine YELLOW (Yellow); Glucose,Urine (UA) Negative (Negative); Ketones,Urine Negative (Negative); Leukocyte Esterase,Urine Negative (Negative); Nitrate,Urine Negative (Negative); PH,Urine 5.5 (5.0-8.5); Protein,Urine Negative (Negative); Specific Gravity, Urine <= 1.005 (1.005-1.030); Urobilinogen,Urine 0.2 EU/dl (0.2)
[2020-07-20 23:19] LABS: Barbiturates Screen,Urine Negative ng/ml (<200)
[2020-07-20 23:20] LABS: Amphetamine/Metha Screen,Urine Negative ng/ml (<1000); Benzodiazepines Screen,Urine Negative ng/ml (<200)
[2020-07-20 23:21] LABS: Cannabinoid Screen,Urine Positive ng/ml (<50); Methadone Screen,Urine Negative ng/ml (<300)
[2020-07-20 23:22] LABS: Cocaine Screen,Urine Negative ng/ml (<300)
[2020-07-20 23:23] LABS: Opiate Screen,Urine Negative ng/ml (<300); Phencyclidine Screen,Urine Negative ng/ml (<25)
[2020-07-21] VITALS (8 sets, daily range): BP systolic 114–148; BP diastolic 54–80; PULSE 70–108; RESP 19–24; TEMP 36.5–38.1; O2SAT 91–94; BMI 28.8
[2020-07-21 00:19] LABS: Troponin I < 0.01 ng/ml (0.00-0.034)
[2020-07-21 00:48] LABS: Reflex Lactic (2 hrs) Add Lactic Reflex
[2020-07-21 07:01] LABS: Basophils % 0.1 % (0.1-2.0); Eosinophils % 0.1 % (0.1-12.0); Hematocrit 33.3 % (42.0-52.0); Hemoglobin 11.1 g/dL (14.1-18.0); Lymphocytes % 4.5 % (10-50); Mean Corpuscular HGB Conc 33.4 g/dL (31.8-35.4); Mean Corpuscular Hemoglobin 29.9 pg (27.0-31.2); Mean Corpuscular Volume 89.5 fl (80-94); Mean Platelet Volume 7.3 fl (7.4-10.4); Monocytes # 0.8 K/mm3 (0.1-1.0); Monocytes % 3.4 % (1.7-9.3); Neutrophils # 20.5 K/mm3 (1.8-7.8); Neutrophils % 91.8 % (37.0-80.0); Platelet Count 183 K/mm3 (142-424); Red Blood Count 3.72 M/mm3 (4.60-6.20); Red Cell Distribution Width 14.9 % (11.5-17.5); White Blood Count 22.4 K/mm3 (4.8-10.8)
[2020-07-21 07:03] LABS: Alanine Aminotransferase 20 U/L (12-78); Albumin/Globulin Ratio 1.3 (1.1-1.8); Alkaline Phosphatase 138 U/L (38-126); Anion Gap 12.3 mEq/L (5-15); Aspartate Amino Transferase 31 U/L (17-59); Bilirubin,Total 2.7 mg/dl (0.2-1.3); Blood Urea Nitrogen 22 mg/dl (9-20); Carbon Dioxide 27 mmol/L (22.0-30.0); Chloride 91 mmol/L (98-107); Creatinine Clearance Estimated 83 mL/min (50-200); Estimated Glomerular Filt Rate 83 ml/min (>60); GFR (African American) 101 ML/MIN (>60); Globulin 3.2 g/dL (1.3-3.2); Glucose 98 mg/dl (74-100); Potassium 4.3 mmoL/L (3.5-5.1); Sodium 126 mmol/L (136-145); Total Protein,Serum 7.2 g/dl (6.3-8.2)
[2020-07-21 07:05] LABS: MANUAL DIFFERENTIAL MANUAL DIFFERENTIAL (MANUAL DIFF)
[2020-07-21 10:36] LABS: Lymphocytes % 6 % (10-50); Monocytes % 2 % (2-9); Neutrophils % 92 % (42-76); Platelet Estimate Normal; RBC Morphology Normal; Total Cells Counted 100
--- NOTE | 2020-07-21 11:22 | XR_ITS ---
PROCEDURE: XR KUB CLINICAL INDICATION: abdominal distension COMPARISON: CT CT CHEST W CON from 07/20/2020 FINDINGS: The bowel gas pattern is nonspecific with nondistended gas-filled loops of small bowel noted. Small amount of contrast is present in the urinary bladder from recent CT scan. No evidence of obstruction. Degenerative changes are present in the lumbar spine. IMPRESSION: Nonspecific nonobstructive bowel gas pattern Dictated by: Jm Sullivan MD 07/21/2020 12:28 Jm Sullivan MD in [place] 07/21/2020 12:28
--- NOTE | 2020-07-21 11:42 | HMH.HP ---
*Admission Date: 07/20/20 *Chief complaint: Confusion, hallucinations *History of present illness: This 70-year-old white male has known squamous cell carcinoma of the lung with metastasis to the spine and to the liver. He presented in the emergency room at [facility] last night with complaints of confusion and visual hallucinations. His white count was elevated and there was evidence of sepsis. He was admitted for further evaluation and IV antibiotics. With his history of alcoholism appropriate protocols were placed. He was brought to the emergency room by his daughter. He had a tissue diagnosis from a T3 lesion biopsy on July 17 under fluoroscopy. This was performed by Dr. Sullivan at [facility]. He has a referral to oncology scheduled. He has been seen by Dr. Hand, pulmonology. [facility] History Medical History: Reports:: Atherosclerotic Heart Disease, Cancer (Metastatic squamous cell carcinoma.), Chronic Obstructive Pulmonary Disease (COPD), Coronary Artery Disease, Gastroesophageal Reflux Disease(GERD), Hyperlipidemia, Hypertension Denies:: Diabetes Mellitus Type 1, Diabetes Mellitus Type 2, Internal Pacemaker, MRSA, Seizures *Have you ever received a pneumonia vaccine?: Yes *Have you received a flu vaccine this season?: No Other Medical History: Denies: Blood Transfusion Reaction, Radiation Therapy Laterality Cases: Bilateral: Carotid Endarterectomy, Tonsillectomy Other Surgeries: Yes: Angiogram, Appendectomy, Cardiac Catheterization, Colonoscopy, Coronary Stent, EGD, Other. No: Pacemaker Amputation: No Fractures: No - *Social History Smoking Status: Former smoker (Last smoked 10 years ago.) Tobacco Type: cigarettes Alcohol Intake: never Alcohol Intake Frequency:: 3 or more drinks per day Substance Use Type: denies use *Occupational Status:: disabled Housing: house Household Members: none *Travel in the last 8 weeks: None Family Hx:: Unable to obtain Review of Systems - Constitutional Reports anorexia, Reports malaise, Reports weakness, Denies chills - ENT Denies hoarseness - *Cardiovascular Reports shortness of breath with activity, Denies chest pain, Denies generalized swelling - *Respiratory Reports chest congestion, Reports cough, Reports shortness of breath with activity - *Gastrointestinal Denies black, tarry stools - *Genitourinary Reports difficulty urinating - *Musculoskeletal Denies joint pain - Integumentary/Breasts Denies bleeding lesions, Denies skin ulcer - *Neurologic Reports behavioral changes, Reports confusion, Reports weakness - Psychiatric Reports seeing things others do not see Meds Home Medications Medication Instructions Recorded Confirmed Type aspirin 81 mg tablet,delayed 81 mg PO DAILY 09/17/17 07/21/20 History release albuterol sulfate 90 mcg/actuation 1 inh INHALATION QID PRN #8.5 g 06/26/20 07/20/20 Rx aerosol inhaler Amlodipine Besylate [Amlodipine 10 mg PO DAILY 07/17/20 07/20/20 History 10mg Tab] Atorvastatin Calcium [Lipitor] 40 mg PO DAILY 07/17/20 07/20/20 History Clopidogrel Bisulfate [Plavix] 75 mg PO DAILY 07/17/20 07/20/20 History Omeprazole 40 mg PO DAILY 07/17/20 07/20/20 History Ropinirole HCl 3 mg PO QHS 07/17/20 07/20/20 History Triamterene/Hydrochlorothiazid 1 tab PO DAILY 07/17/20 07/20/20 History [Maxzide-25 tablet] bisoproloL fumarate [Bisoprolol 5 mg PO DAILY 07/17/20 07/20/20 History Fumarate] Tramadol HCl [Tramadol 50mg 50 mg PO NEEDED PRN 07/20/20 07/20/20 History Tab] Allergies Allergy/AdvReac Type Severity Reaction Status Date / Time No Known Allergies Allergy Verified 07/20/20 17:28 Exam Vital signs and Labs for Last 24 Hours: Temp Pulse Resp BP Pulse Ox 100.5 F H 107 H 22 139/65 91 L 07/21/20 08:00 07/21/20 08:00 07/21/20 08:00 07/21/20 08:00 07/21/20 08:00 Laboratory Results - last 24 hr 07/20/20 17:12: WBC 25.2 H*, RBC 3.97 L, Hgb 11.8 L
--- NOTE | 2020-07-21 12:29 | PC.NURSE ---
SPOKE WITH DR MORALEZ REGARDING PT PRESENTATION AND HR IN THE 120'S ON TELEMETRY.
--- NOTE | 2020-07-21 12:31 | PC.NURSE ---
NOTIFIED MD MORALEZ THAT PATIENT HAS BEEN UNABLE TO TAKE MORNING PO MEDS
--- NOTE | 2020-07-21 14:52 | HMH.PHAVTE ---
[facility] Pharmacy VTE Monitoring - Patient Demographics Admission date: 07/20/20 Report Date: 07/21/20 Time: 14:52 Allergies/Adverse Reactions: Patient Allergies No Known Allergies Allergy (Verified 07/20/20 17:28) Height: 1.73 m Weight: 86.353 kg Patient Problems: Current Active Problems Sepsis (Acute) Right lower lobe pneumonia (Acute) Metabolic encephalopathy (Acute) Alcohol withdrawal (Acute) Metastatic squamous cell carcinoma (Acute) - VTE Risk Labs: VTE Related Lab Results Hgb 11.1 g/dL (14.1-18.0) L 07/21/20 05:45 Hct 33.3 % (42.0-52.0) L 07/21/20 05:45 Plt Count 183 K/mm3 (142-424) 07/21/20 05:45 PT 11.4 seconds (9.4-11.8) 07/20/20 17:12 INR 1.03 (0.9-1.1) 07/20/20 17:12 APTT 23.5 seconds (23.6-34.0) L 07/20/20 17:12 BUN 22 mg/dl (9-20) H 07/21/20 05:45 Creatinine 0.90 mg/dl (0.66-1.25) D 07/21/20 05:45 Estimated Creat Clear 83 mL/min (50-200) 07/21/20 05:45 - Prophylaxis VTE Prophylaxis Ordered?: Yes Types of VTE Prophylaxis: TEDS Knee High Location of Applied Device: Bilateral Lower Extremeties
--- NOTE | 2020-07-21 14:57 | HMH.PHAINT ---
MEDICATION RECONCILIATION COMPLETED ON PATIENT USING EXTERNAL FILL HISTORY FROM PHARMACY AND LIST FROM CARDIOLOGY OFFICE. -RAQUEL BETANCURD
--- NOTE | 2020-07-21 18:15 | PC.NURSE ---
PT HAS BEEN CONFUSED AND MOSTLY UNCOOPERATIVE THIS SHIFT, DOES RESPONS AND TELL HIS NAME BUT LITTLE ELSE, FEVER OF 100.6 NOTED, MD CONTACTED AND TYLENOL ADMIN PER MD ORDERS, PT ORAL TEMP NOTED TO BE 98.1 FOLLOWING ADMIN OF TYLENOL. ASCITES NOTED TO ABDOMEN WITH JAUNDICE NOTICEABLE, MD IS AWARE OF FINDINGS AND WAS INFORMED DURING ROUNDS THIS SHIFT, PT HAS APPEARED DIAPHORETIC SINCE FEVER HAS BROKEN. BED BATH GIVEN AND LINENS CHANGED, PT HAS BEEN INCONTINENT OF BLADDER T/O SHIFT, 2LNC FOR O2 SUPPORT, O2 WNL, PT MEDS HAVE BEEN CRUSHED THIS SHIFT AND WERE ADMIN LATE R/T TO PATIENT DISORIENTATION, CIWA COMPLETED Q4 HOURS, PT REPOSITIONED Q2 HOURS, NO NEEDS AT THIS TIME, PT REMAINS SAFE.
[2020-07-22] VITALS (10 sets, daily range): BP systolic 96–154; BP diastolic 59–74; PULSE 92–130; RESP 18–24; TEMP 36.5–37.6; O2SAT 85–100; BMI 28.3
--- NOTE | 2020-07-22 04:35 | PC.NURSE ---
Spoke with Channing RING at this time. Provided current update on pt's mental status. Pt noted confused and restless thus far all shift. Only alert and oriented to person. Pt has to be reminded multiple times he is at the hospital due to having PNA. At this time pt's CIWA score is 16. Pt is experiencing auditory and visual hallucinations, cussing at staff, agitated trying to get OOB (bed alarm intact), and thrashing in bed attempting to disengage his IVs. HR sustaining 100 range. Pt with persistent SOA, he is refusing to wear O2 on 2 lnc. Staff continues to attempt to reorientate pt and reapply O2 for pt safety. New order received for Serax (Oxazepam) 15 mg PO Q6H WILLIAM, first dose to be administered now. Will continue to monitor.
--- NOTE | 2020-07-22 06:05 | PC.NURSE ---
Applied mitts to bilateral hands for pt safety. Pt attempting to pull out IVs while lying in bed, confused. pt thrashing himself down in bed while attempting to get OOB. Staff at bedside with one on one assist at this time.
--- NOTE | 2020-07-22 08:11 | PC.NURSE ---
pt is lying in bed, pt does not appear agitated at this time, mitts remain in place, pt denies pain and hallucinations, mild tremors are felt, pt is able to tell me his name and that he is in [place], safety measures in place, will continue to monitor.
--- NOTE | 2020-07-22 08:57 | PC.NURSE ---
PT HAS REFUSED FOLIC ACID DURING MORNING MED PASS, WOULD THRASH AROUND IN THE BED A CLINCH TEETH, STATES NO I DON'T WANT ANYMORE MEDICINE WILL CONTINUE TO MONITOR PT, SAFETY MEASURES IN PLACE, WILL ATTEMPT TO GIVE FOLIC ACID AGAIN LATER IN SHIFT
--- NOTE | 2020-07-22 09:25 | HMH.ACPN2 ---
Internal Medicine - PN: Subj *Date: 07/22/20 *Time: 09:25 Interval history: The patient had a difficult night. Of course he was on the lorazepam and came off of that yesterday. But he was agitated through the night. Early this morning I was called and initiated oxazepam. This morning he is not oriented. He is wearing protective mitts because he tried to pull out his IV last night. The CT did not show brain metastasis. 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 We know he has liver metastasis. Exam Vital signs and Labs for Last 24 Hours: Temp Pulse Resp BP Pulse Ox 98.2 F 107 H 18 146/69 H 100 07/22/20 08:00 07/22/20 08:00 07/22/20 08:00 07/22/20 08:00 07/22/20 08:00 Laboratory Results - last 24 hr 07/21/20 05:45: Total Counted 100, Neutrophils % (Manual) 92 H, Lymphocytes % (Manual) 6 L, Monocytes % (Manual) 2, Platelet Estimate Normal, RBC Morphology Normal I & O for Last 24 hours: Intake & Output 07/19/20 07/20/20 07/21/20 07/22/20 11:59 11:59 11:59 11:59 Intake Total 1999 / 1999 785 / 785 Output Total 400 / 400 300 / 300 Balance 1600 / 1600 485 / 485 Weight 190 lb 6 oz 187 lb 6.004 oz - Constitutional no acute distress - *Routine HEENT Exam Eye: Present: PERRL ENT: Present: mucous membranes moist - *Routine Neck Exam Present: supple - Routine Chest/Breast/Axilla Exam Chest wall: Absent: tenderness - *Routine Respiratory Exam Present: decreased breath sounds, rhonchi (Some) - *Routine Cardiovascular Exam Present: RRR - *Routine Abdominal Exam Present: distended. Absent: mass - *Routine Extremities Exam Absent: edema - *Routine Neurological Exam Present: moving all extremities. Absent: alert, oriented X3 - Routine Psychiatric Exam Present: agitated Assessment and Plan (1) Sepsis Status: Acute Qualifiers: Sepsis type: sepsis due to unspecified organism Sepsis acute organ dysfunction status: with acute organ dysfunction Severe sepsis acute organ dysfunction type: encephalopathy Severe sepsis shock status: without septic shock Qualified Code(s): A41.9 - Sepsis, unspecified organism; R65.20 - Severe sepsis without septic shock; G93.40 - Encephalopathy, unspecified Category: Medical Code(s): A41.9 - Sepsis, unspecified organism (2) Metastatic squamous cell carcinoma Status: Acute Category: Medical Code(s): C79.9 - Secondary malignant neoplasm of unspecified site (3) Metabolic encephalopathy Status: Acute Category: Medical Code(s): G93.41 - Metabolic encephalopathy (4) Right lower lobe pneumonia Status: Acute Qualifiers: Pneumonia type: due to unspecified organism Qualified Code(s): J18.9 - Pneumonia, unspecified organism Category: Medical Code(s): J18.9 - Pneumonia, unspecified organism (5) Alcohol withdrawal Status: Acute Qualifiers: Complication of substance-induced condition: with perceptual disturbance Qualified Code(s): F10.232 - Alcohol dependence with withdrawal with perceptual disturbance Category: Medical Code(s): F10.239 - Alcohol dependence with withdrawal, unspecified - Assessment and plan all Dx Assessment and Plan for all problems:: Review of meds. See orders.
--- NOTE | 2020-07-22 10:33 | DIET.NUTRFU ---
Pt confused and has refused first 4 meals, daughter at bedside states pt has refused most nutrition for the past few weeks. She states he clamps his mouth shut at food offerings but will drink ensure and the occasional sweets. Pt at risk malnutrition with loss 6% body weight in past 3 months. Pt on regular diet and encouraged to write in any preferences appealing, Ensure shakes on diet order TID. Will monitor tolerance/acceptance and continue to provide education/counseling t/o stay. 126 Na and 22 BUN this am. Weight stable.
[2020-07-22 14:40] LABS: Chloride 96 mmol/L (98-107); Potassium 4.2 mmoL/L (3.5-5.1); Sodium 131 mmol/L (136-145)
[2020-07-22 14:43] LABS: Alanine Aminotransferase 18 U/L (12-78); Albumin Level 3.6 g/dl (3.5-5.0); Albumin/Globulin Ratio 1.1 (1.1-1.8); Alkaline Phosphatase 129 U/L (38-126); Anion Gap 11.2 mEq/L (5-15); Aspartate Amino Transferase 40 U/L (17-59); Bilirubin,Total 2.5 mg/dl (0.2-1.3); Blood Urea Nitrogen 23 mg/dl (9-20); Carbon Dioxide 28 mmol/L (22.0-30.0); Creatinine Clearance Estimated 81 mL/min (50-200); Estimated Glomerular Filt Rate 95 ml/min (>60); GFR (African American) 115 ML/MIN (>60); Globulin 3.4 g/dL (1.3-3.2)
[2020-07-22 14:44] LABS: Ammonia < 9 umol/L (9-30); Calcium 11.3 mg/dl (8.4-10.2); Glucose 105 mg/dl (74-100)
[2020-07-22 14:45] LABS: ABG Base Excess -0.3 mmol/L (-2.4-2.3); ABG HCO3 23.6 mmhg (22.0-26.0); ABG Oxygen Saturation 91 % (90-100); ABG PCO2 34.3 mmhg (35.0-45.0); ABG PH 7.46 mmol/L (7.35-7.45); ABG PO2 61.5 mmhg (80-100); ABG TCO2 24.7 mmhg (23-27)
[2020-07-22 14:49] LABS: Allen's Test Patient Unable; Source Right Radial
--- NOTE | 2020-07-22 17:15 | PC.NURSE ---
DUJENNIFER ORDERED Q6PRN, PATIENT STILL SIDORIENTED, ABLE TO ANSWER NAME ONLY, MITTS STILL IN PLACE BILATERALLY WITH BED ALARM ON AND FUNCTIONING, 2LNC WITH O2 SATS WNL, ABD DISTENDED, LAST CIWA SCORE WAS 8, PT RESTING COMFORTABLY AT THIS TIME, WILL CONTINUE TO MONITOR.
--- NOTE | 2020-07-22 18:23 | PC.NURSE ---
PT WOULD NOT SWALLOW SERAX, WASTED WITH Trina CORREIA RN
[2020-07-23] VITALS (15 sets, daily range): BP systolic 121–155; BP diastolic 55–68; PULSE 80–105; RESP 18–24; TEMP 36.3–36.8; O2SAT 90–96; BMI 28.3
--- NOTE | 2020-07-23 06:32 | PC.NURSE ---
At the beginning of the shift, pt could easily be awakening with light tough and calling his name loudly. Pt attempted to speak but it was very garbled and pt drifted back to sleep quickly. Pt was able to be stimulated enough to take a small sip of water and crushed pills in applesauce (1/2 spoonful). He tolerated it very well and opened mouth and was understood to say that's nasty stuff . Pt was able to rest for a few hours but then began to be more awake, and he tried getting out of bed. Pt was very fatigued and could not hold head up on own, only moved legs out out of bed and gripping the hand rails in attempt to pull himself up. Mitts removed and pt assisted up and sitting on side of the bed. Pt was much more awake, holding eyes open and had clear words. This RN began asking Orientation questions, pt stated his name and birthday. Pt stated the current time is February 2013 and he reports he is at a friends house. 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 Was asking if pt was in any pain and pt only responded with a question of Got any bourbon? This RN replied no, and reminded pt he was in the hospital. Pt stated Oh shit. Pt wanted to get into chair but then proceeded to lay forward at the foot of the bed. Pt was assisted up into the bed and laid back and turned to side. Bed alarm in use for safety. Mitts were left off to as pt is not pulling on IVs at this time. Pt was also given his breathing tx, is very wheezy at this time. No pitting edema. Ascitic and distended ABD. Slight jaundiced tone and jaundiced sclera noted. Pulses 2+. Pt has had persistent coughing at times, non-productive. O2 was increased to 3LPM via NC d/t sats staying 85-87%. HR has been at most low 100s. Pts temp was Tmax 99.6 Oral. Pt did take Tylenol in applesauce and temp this am is 97.9.
[2020-07-23 06:47] LABS: Basophils % 0.2 % (0.1-2.0); Eosinophils # 0.1 K/mm3 (0.0-0.4); Eosinophils % 0.3 % (0.1-12.0); Hematocrit 35.2 % (42.0-52.0); Hemoglobin 11.4 g/dL (14.1-18.0); Lymphocytes # 1.5 K/mm3 (0.7-4.5); Mean Corpuscular HGB Conc 32.4 g/dL (31.8-35.4); Mean Corpuscular Hemoglobin 30.5 pg (27.0-31.2); Mean Corpuscular Volume 94.1 fl (80-94); Mean Platelet Volume 8.3 fl (7.4-10.4); Monocytes # 0.7 K/mm3 (0.1-1.0); Monocytes % 4.1 % (1.7-9.3); Neutrophils # 15.9 K/mm3 (1.8-7.8); Neutrophils % 87.5 % (37.0-80.0); Platelet Count 253 K/mm3 (142-424); Red Blood Count 3.75 M/mm3 (4.60-6.20); Red Cell Distribution Width 15.3 % (11.5-17.5); White Blood Count 18.2 K/mm3 (4.8-10.8)
[2020-07-23 06:54] LABS: Chloride 96 mmol/L (98-107); Potassium 3.4 mmoL/L (3.5-5.1); Sodium 134 mmol/L (136-145)
[2020-07-23 06:57] LABS: Anion Gap 15.4 mEq/L (5-15); Blood Urea Nitrogen 21 mg/dl (9-20); Calcium 11.8 mg/dl (8.4-10.2); Carbon Dioxide 26 mmol/L (22.0-30.0); Creatinine Clearance Estimated 81 mL/min (50-200); Estimated Glomerular Filt Rate 95 ml/min (>60); GFR (African American) 115 ML/MIN (>60); Glucose 112 mg/dl (74-100)
[2020-07-23 07:06] LABS: MANUAL DIFFERENTIAL MANUAL DIFFERENTIAL (MANUAL DIFF)
--- NOTE | 2020-07-23 08:13 | HMH.ACPN2 ---
Internal Medicine - PN: Subj *Date: 07/23/20 *Time: 08:27 Interval history: Per nursing: Patient has been restless although sedated. He has been confused. He has been on the side of the bed. Mittens have been applied as necessary. They are off at present. He did develop increase in heart rate 150/min which slowed to 100 and then in the 90s. Monitor showing sinus rhythm. Blood pressures have been stable. He did have a low-grade temperature last evening. Nursing also reports that speech is less slurred. He did choke on his medicines and is for modified swallowing test today. He is n.p.o. at present. Patient denies chest pain and shortness of air. He questions where he is. Laboratory data this morning: CBC with a white blood cell count of 18,200 down from 22.4. Blood chemistries: sodium is 134 potassium is 3.4. Kidney function with a BUN of 21 creatinine 0.8. Exam Vital signs and Labs for Last 24 Hours: Temp Pulse Resp BP Pulse Ox 97.7 F 97 H 20 137/62 94 L 07/23/20 08:00 07/23/20 08:00 07/23/20 08:00 07/23/20 08:00 07/23/20 08:00 Laboratory Results - last 24 hr 07/22/20 14:23: Specimen Source Right radial, O2 % 2 lmp, ABG pH 7.46 H, ABG pCO2 34.3 L, ABG pO2 61.5 L, ABG HCO3 23.6, ABG Total CO2 24.7, ABG O2 Saturation 91, ABG Base Excess -0.3, Jm Test Patient unable 07/22/20 14:27: Sodium 131 L, Potassium 4.2, Chloride 96 L, Carbon Dioxide 28, Anion Gap 11.2, BUN 23 H, Creatinine 0.80, Estimated Creat Clear 81, Estimated GFR 95, Est GFR ( Amer) 115, Glucose 105 H, Calcium 11.3 H, Total Bilirubin 2.5 H, AST 40 D, ALT 18, Alkaline Phosphatase 129 H, Total Protein 7.0, Albumin 3.6, Globulin 3.4 H, Albumin/Globulin Ratio 1.1 07/22/20 14:27: Ammonia < 9 L 07/23/20 06:15: WBC 18.2 H, RBC 3.75 L, Hgb 11.4 L, Hct 35.2 L, MCV 94.1 H, MCH 30.5, MCHC 32.4, RDW 15.3, Plt Count 253 D, MPV 8.3, Neut % (Auto) 87.5 H, Lymph % (Auto) 8.0 L, [place] % (Auto) 4.1, Eos % (Auto) 0.3, Baso % (Auto) 0.2, Neut # (Auto) 15.9 H, Lymph # (Auto) 1.5, [place] # (Auto) 0.7, Eos # (Auto) 0.1, Baso # (Auto) 0.0 07/23/20 06:15: Sodium 134 L, Potassium 3.4 L, Chloride 96 L, Carbon Dioxide 26, Anion Gap 15.4 H, BUN 21 H, Creatinine 0.80, Estimated Creat Clear 81, Estimated GFR 95, Est GFR ( Amer) 115, Glucose 112 H, Calcium 11.8 H I & O for Last 24 hours: Intake & Output 07/20/20 07/21/20 07/22/20 07/23/20 11:59 11:59 11:59 11:59 Intake Total 1999 / 1999 785 / 785 120 / 120 Output Total 400 / 400 300 / 300 Balance 1600 / 1600 485 / 485 120 / 120 Weight 190 lb 6 oz 187 lb 6.287 oz 186 lb 9 oz Microbiology Reports for the Last 24 Hours: Microbiology 07/20/20 17:29 Blood Blood Culture - Preliminary NO GROWTH AFTER 48 HOURS 07/20/20 17:29 Blood Blood Culture - Preliminary NO GROWTH AFTER 48 HOURS - Constitutional no acute distress Comments: Speech is somewhat slurred. He tries to answer all questions. He is cooperative with care and assist with exam. Mittens are off at present. - *Routine Respiratory Exam Present: other Comments: Very few scattered rhonchi. - *Routine Cardiovascular Exam Present: RRR (Monitor showing sinus rhythm in the 90s at present) - *Routine Abdominal Exam Present: soft, normoactive bowel sounds, distended. Absent: tenderness - *Routine Extremities Exam Absent: edema, calf tenderness - *Routine Neurological Exam Present: alert (Disoriented) Assessment and Plan (1) Sepsis Status: Acute Qualifiers: Sepsis type: sepsis due to unspecified organism Sepsis acute organ dysfunction status: with acute organ dysfunction Severe sepsis acute organ dysfunction type: encephalopathy Severe sepsis shock status: without septic shock Qualified Code(s): A41.9 - Sepsis, unspecified organism; R65.20 - Severe sepsis without septic shock; G93.40 - Encephalopathy, unspecified Category: Medical Code(s): A41.9 -
[2020-07-23 08:17] LABS: Lymphocytes % 9 % (10-50); Monocytes % 3 % (2-9); Neutrophils % 87 % (42-76); Platelet Estimate Normal; RBC Morphology Normal; Total Cells Counted 100
--- NOTE | 2020-07-23 08:25 | XR_ITS ---
PROCEDURE: XR CHEST PORTABLE CLINICAL HISTORY: Pneumonia; persistent elevated white blood cell co COMPARISON: CR XR CHEST 2V from 06/19/2020 CR XR CHEST 2V from 07/17/[address] CHEST W CON from 07/20/2020 CR XR CHEST PORTABLE from 07/20/2020 FINDINGS: The cardiomediastinal silhouette and pulmonary vascularity are within normal limits. There is worsening consolidation of the right upper and right lower lobe consistent with worsening right-sided pneumonia. There are some atelectatic changes in the right lung base. No acute bony abnormalities. IMPRESSION: Worsening right-sided pneumonia Dictated by: Jm Sullivan MD 07/23/2020 09:47 Jm Sullivan MD in [facility] 07/23/2020 09:47
--- NOTE | 2020-07-23 10:02 | HMH.SLDYSPHA ---
Speech & Language Evaluation Speech/Language Dysphagia Evaluation Start: 07/23/20 09:45 Freq: ONCE Status: Active Protocol: Document 07/23/20 09:49 WENDI (Rec: 07/23/20 10:02 WENDI [id number]) Dysphagia Assess/Goals/Plan Assessment Date of Evaluation: 07/23/20 Evaluation Type Initial Certification Assessment/Problems Dysphagia Does Patient Qualify for Service No Qualify/Failure Comment Patient has difficulty with orientation and following directions which inhibits him from participating in therapy at this time. Recommendations PHYSICIAN CERTIFICATION: The specified therapy services are required, authorized, and reviewed every 30 days. Diet Recommendations Normal Liquid Type Recommendations Normal/Thin SL Swallow Guidelines Assist w/all meals,High aspiration risk Crush Meds Crush all meds Dysphagia Swallow Precautions/Strategies Sitting Upright (90 deg),Small Bites and Sips,Alternate Liquids/Solids Plan Pt/Guardian verbally ack understanding No: RN and notified of dx/prognosis/goals G -code Required No General Information General Current Food Consistancy Regular,Thin Liquids Dentition Good Dentition Oxygen Status Nasal Cannula Facial Symmetry Symmetrical Ability to Follow Directions Poor Communication Ability Mild Impairment Dysphagia:Food Presentation Evaluation Food Type Regular,Liquid,Pudding Dysphagia Evaluation Summary Mr. Brambila was given the following consistencies: thins via straw and open cup, pudding, and regular. No signs of dysphagia noted during evaluation, however he had to re-oriented with each bolus. At this time, it is recommended he remain on his current diet. It is recommended he have assistance with all meals to help re- orient him back to task. He will be monitored for any change. Stroke Dysphagia Assessment PHYSICIAN CERTIFICATION: I certify the specified therapy services for Levy Brambila are required, authorized, and reviewed every 30 days.
--- NOTE | 2020-07-23 19:59 | PC.NURSE ---
PATIENT IS ALERT TO NAME AND . PATIENT LUNGS: AUDIBLE WHEEZING, PULSES EQUAL AND TACHY. ABDOMEN IS DISTENDED, SOFT AND NON TENDER. PATIENT HAS HAD SEVERAL EPISODES OF CONFUSION DURING THIS RN SHIFT.NO OTHER CONCERNS AT THIS TIME.
[2020-07-24] VITALS (11 sets, daily range): BP systolic 119–143; BP diastolic 54–75; PULSE 60–120; RESP 14–26; TEMP 35.8–36.7; O2SAT 90–95; BMI 28.1
--- NOTE | 2020-07-24 05:57 | PC.NURSE ---
Pt is alert to name, birthday and situation. Pt has had episodes of anxiety t/o the shift and has tried getting out of bed. Bed alarm activated for safety. Pt has been on 4L NC this shift. Audbile wheezing heard when entering pt's room and inspiratory and expiratory wheexing heard scattered t/o all lung haro per auscultation. Pt has been incontinent of urine this shift. Active bowel sounds heard in all 4 quads. No BM noted this shift. CIWA assessments performed according to protocol, Serax administered per OCT. No other acute changes or concerns at this time. Will continue to monitor.
[2020-07-24 07:31] LABS: Basophils % 0.1 % (0.1-2.0); Chloride 100 mmol/L (98-107); Eosinophils % 0.1 % (0.1-12.0); Hematocrit 32.2 % (42.0-52.0); Hemoglobin 10.7 g/dL (14.1-18.0); Lymphocytes # 0.6 K/mm3 (0.7-4.5); Lymphocytes % 4.9 % (10-50); Mean Corpuscular HGB Conc 33.3 g/dL (31.8-35.4); Mean Corpuscular Hemoglobin 30.8 pg (27.0-31.2); Mean Corpuscular Volume 92.5 fl (80-94); Mean Platelet Volume 7.3 fl (7.4-10.4); Monocytes # 0.4 K/mm3 (0.1-1.0); Monocytes % 2.8 % (1.7-9.3); Neutrophils # 11.6 K/mm3 (1.8-7.8); Neutrophils % 92.2 % (37.0-80.0); Platelet Count 296 K/mm3 (142-424); Red Blood Count 3.48 M/mm3 (4.60-6.20); Red Cell Distribution Width 15.3 % (11.5-17.5); White Blood Count 12.6 K/mm3 (4.8-10.8)
[2020-07-24 07:32] LABS: MANUAL DIFFERENTIAL MANUAL DIFFERENTIAL (MANUAL DIFF); Potassium 4.1 mmoL/L (3.5-5.1); Sodium 134 mmol/L (136-145)
[2020-07-24 07:35] LABS: Anion Gap 10.1 mEq/L (5-15); Blood Urea Nitrogen 19 mg/dl (9-20); Calcium 11.7 mg/dl (8.4-10.2); Carbon Dioxide 28 mmol/L (22.0-30.0); Creatinine Clearance Estimated 81 mL/min (50-200); Estimated Glomerular Filt Rate 133 ml/min (>60); GFR (African American) 161 ML/MIN (>60); Glucose 155 mg/dl (74-100)
--- NOTE | 2020-07-24 08:40 | HMH.ACPN2 ---
Internal Medicine - PN: Subj *Date: 07/24/20 *Time: 08:40 Interval history: Patient is slightly more alert today but is still confused and agitated. He can answer questions and states he has no pain. He was trying to get out of the bed this morning and was pulling on his IVs. He was able to drink a few drinks with assistance. Exam Vital signs and Labs for Last 24 Hours: Temp Pulse Resp BP Pulse Ox 97.0 F L 82 14 130/59 L 92 L 07/24/20 07:44 07/24/20 07:44 07/24/20 07:44 07/24/20 07:44 07/24/20 07:44 Laboratory Results - last 24 hr 07/24/20 07:03: WBC 12.6 H D, RBC 3.48 L, Hgb 10.7 L, Hct 32.2 L, MCV 92.5, MCH 30.8, MCHC 33.3, RDW 15.3, Plt Count 296, MPV 7.3 L, Neut % (Auto) 92.2 H, Lymph % (Auto) 4.9 L, [place] % (Auto) 2.8, Eos % (Auto) 0.1, Baso % (Auto) 0.1, Neut # (Auto) 11.6 H, Lymph # (Auto) 0.6 L, [place] # (Auto) 0.4, Eos # (Auto) 0.0, Baso # (Auto) 0.0 07/24/20 07:03: Sodium 134 L, Potassium 4.1 D, Chloride 100, Carbon Dioxide 28, Anion Gap 10.1, BUN 19, Creatinine 0.60 L D, Estimated Creat Clear 81, Estimated GFR 133, Est GFR ( Amer) 161 D, Glucose 155 H, Calcium 11.7 H I & O for Last 24 hours: Intake & Output 07/21/20 07/22/20 07/23/20 07/24/20 11:59 11:59 11:59 11:59 Intake Total 1999 / 1999 785 / 785 120 / 120 480 / 480 Output Total 400 / 400 300 / 300 Balance 1600 / 1600 485 / 485 120 / 120 480 / 480 Weight 190 lb 6 oz 187 lb 6.287 oz 186 lb 9 oz 185 lb 13.595 oz - Constitutional agitated - *Routine Respiratory Exam Present: rhonchi (scattered) - *Routine Cardiovascular Exam Present: RRR - *Routine Abdominal Exam Present: soft, normoactive bowel sounds. Absent: tenderness - *Routine Extremities Exam Absent: cyanosis, clubbing, edema - *Routine Skin Exam Present: warm. Absent: rash - *Routine Neurological Exam Patient tries to answer questions but does get agitated easily. Assessment and Plan (1) Sepsis Status: Acute Qualifiers: Sepsis type: sepsis due to unspecified organism Sepsis acute organ dysfunction status: with acute organ dysfunction Severe sepsis acute organ dysfunction type: encephalopathy Severe sepsis shock status: without septic shock Qualified Code(s): A41.9 - Sepsis, unspecified organism; R65.20 - Severe sepsis without septic shock; G93.40 - Encephalopathy, unspecified Category: Medical Code(s): A41.9 - Sepsis, unspecified organism (2) Metastatic squamous cell carcinoma Status: Acute Category: Medical Code(s): C79.9 - Secondary malignant neoplasm of unspecified site (3) Metabolic encephalopathy Status: Acute Category: Medical Code(s): G93.41 - Metabolic encephalopathy (4) Right lower lobe pneumonia Status: Acute Qualifiers: Pneumonia type: due to unspecified organism Qualified Code(s): J18.9 - Pneumonia, unspecified organism Category: Medical Code(s): J18.9 - Pneumonia, unspecified organism (5) Alcohol withdrawal Status: Acute Qualifiers: Complication of substance-induced condition: with perceptual disturbance Qualified Code(s): F10.232 - Alcohol dependence with withdrawal with perceptual disturbance Category: Medical Code(s): F10.239 - Alcohol dependence with withdrawal, unspecified - Assessment and plan all Dx Assessment and Plan for all problems:: Patient's white blood cell count is improving and his potassium has normalized. His repeat chest x-ray shows worsening right-sided pneumonia. Will discuss further care with Dr. Snell.
[2020-07-24 08:45] LABS: Lymphocytes % 3 % (10-50); Monocytes % 2 % (2-9); Neutrophils % 95 % (42-76); Platelet Estimate Normal; RBC Morphology Normal; Total Cells Counted 100
--- NOTE | 2020-07-24 08:52 | FL_ITS ---
PROCEDURE: FL BARIUM SWALLOW MODIFIED CLINICAL INDICATION: Pneumonia, coughing, COMPARISON: No exams were available for comparison TECHNIQUE: Patient administered varying consistencies of barium contrast, while viewed in lateral position under real-time fluoroscopy with cine recording. FLUOROSCOPY TIME:2 minutes and 41 seconds The study was performed in conjunction with speech pathologist. Please see that report & recommendations. FINDINGS: Patient was given varying consistencies of barium. There was early spillage into the pharyngeal region and esophagus. No aspiration or penetration apparent. There was some problem with mastication. There was some stasis within the vallecula.. IMPRESSION: Early spillage with stasis and difficulty with mastication. No aspiration or penetration Please see speech pathologist report and recommendations. Dictated by: Jm Sullivan MD 07/25/2020 17:21 Jm Sullivan MD in [facility] 07/25/2020 17:21
--- NOTE | 2020-07-24 12:40 | P.PN_ITS ---
Internal Medicine - PN: Subj *Date: 07/24/20 *Time: 12:40 Exam Vital signs and Labs for Last 24 Hours: Temp Pulse Resp BP Pulse Ox 97.0 F L 106 H 14 130/59 L 92 L 07/24/20 07:44 07/24/20 08:00 07/24/20 07:44 07/24/20 07:44 07/24/20 07:44 Laboratory Results - last 24 hr 07/24/20 07:03: WBC 12.6 H D, RBC 3.48 L, Hgb 10.7 L, Hct 32.2 L, MCV 92.5, MCH 30.8, MCHC 33.3, RDW 15.3, Plt Count 296, MPV 7.3 L, Neut % (Auto) 92.2 H, Lymph % (Auto) 4.9 L, [place] % (Auto) 2.8, Eos % (Auto) 0.1, Baso % (Auto) 0.1, Neut # (Auto) 11.6 H, Lymph # (Auto) 0.6 L, [place] # (Auto) 0.4, Eos # (Auto) 0.0, Baso # (Auto) 0.0, Total Counted 100, Neutrophils % (Manual) 95 H, Lymphocytes % (Manual) 3 L, Monocytes % (Manual) 2, Platelet Estimate Normal, RBC Morphology Normal 07/24/20 07:03: Sodium 134 L, Potassium 4.1 D, Chloride 100, Carbon Dioxide 28, Anion Gap 10.1, BUN 19, Creatinine 0.60 L D, Estimated Creat Clear 81, Estimated GFR 133, Est GFR ( Amer) 161 D, Glucose 155 H, Calcium 11.7 H I & O for Last 24 hours: Intake & Output 07/21/20 07/22/20 07/23/20 07/24/20 23:59 23:59 23:59 23:59 Intake Total 0 / 120 905 / 905 480 / 480 0 / 0 Output Total 300 / 300 Balance 0 / -80 605 / 605 480 / 480 0 / 0 Weight 86.353 kg 85 kg 84.623 kg 84.3 kg Assessment and Plan (1) Sepsis Status: Acute Qualifiers: Sepsis type: sepsis due to unspecified organism Sepsis acute organ dysfunction status: with acute organ dysfunction Severe sepsis acute organ dysfunction type: encephalopathy Severe sepsis shock status: without septic shock Qualified Code(s): A41.9 - Sepsis, unspecified organism; R65.20 - Severe sepsis without septic shock; G93.40 - Encephalopathy, unspecified Category: Medical Code(s): A41.9 - Sepsis, unspecified organism (2) Metastatic squamous cell carcinoma Status: Acute Category: Medical Code(s): C79.9 - Secondary malignant neoplasm of unspecified site (3) Metabolic encephalopathy Status: Acute Category: Medical Code(s): G93.41 - Metabolic encephalopathy (4) Right lower lobe pneumonia Status: Acute Qualifiers: Pneumonia type: due to unspecified organism Qualified Code(s): J18.9 - Pneumonia, unspecified organism Category: Medical Code(s): J18.9 - Pneumonia, unspecified organism (5) Alcohol withdrawal Status: Acute Qualifiers: Complication of substance-induced condition: with perceptual disturbance Qualified Code(s): F10.232 - Alcohol dependence with withdrawal with perceptual disturbance Category: Medical Code(s): F10.239 - Alcohol dependence with withdrawal, unspecified The patient's infection will respond to the chosen ABx?: Yes (EMPIRIC THERAPY) Is the patient receiving the right drug, dose, and route?: Yes Could a more targeted ABx be ordered?: No
--- NOTE | 2020-07-24 13:45 | HMH.SLMBS2 ---
Speech & Language Evaluation Speech/Language Mod Barium Swallow Start: 07/24/20 08:52 Freq: ONCE Status: Complete Protocol: Document 07/24/20 13:36 WENDI (Rec: 07/24/20 13:45 WENDI [id number]) General Information General Current Food Consistancy Regular,Chopped Meats,Thin Liquids Dentition Upper & Lower Dentures, Edentulous Comment: Dentures at home during evaluation Oxygen Status Nasal Cannula Patient Orientation Person,Place Ability to Follow Directions Good Communication Ability Mild Impairment MBS Recommendations Diet Dietary Recommendations Dysphagia Mechanical Soft, Ground Meats,Thin Liquids Treatment/Strategies Strategy/Precaution Recommend Sitting Upright (90 deg),Small Bites and Sips,Alternate Liquids/Solids Mod Barium Swallow Impressions Summary and Impressions Oral Phase Impression Mild Impairment Oral Phase Summary Mr. Brambila was given the following consistencies: thins via straw and open cup, pudding, mechanical soft, mixed consistency, and pill with thin wash. MR. Brambila did exhibit difficulty masticating mechanical soft due to lack of dentition. His dentures were taken home per nurses recommendation. Pharyngeal Phase Impression Mild Impairment Pharyngeal Phase Summary Mr. Brambila experienced premature spillage into pharynx and esophagus with mechanical soft consistency due to decreased mastication. No signs of aspiration noted during examination. Speech/Language MBS Assessment/Goals/Plan Assessment Date of Evaluation: 07/24/20 Evaluation Type Re-Evaluation/Revise POC Assessment/Problems Dysphagia Does Patient Qualify for Service No Qualify/Failure Comment Mr. Brambila is already assisted with his meal times. It is recommended feeder remind him of chewing his food during meals. He continues to have difficulty following directions. He will continue to be monitored for diet
--- NOTE | 2020-07-24 17:52 | PC.NURSE ---
Patient is alert to person and only. Bed alarm on as patient gets distracted and attempts to get out of bed but remains confused. GI patient had a small bowel movement today, no n/v/d, has eaten 50% of meals patient is incontinent to urine but has had several wet briefs today. Patients has remained hemodynamically stable, oxygen is now at 3l. Patient remains persistent that he wants to go home .CIWA score was a 4. No tremors noted in hands, no headache or undue agitation. Family is present at bedside and patient is complacent. Will continue to monitor
--- NOTE | 2020-07-24 17:54 | DIET.NUTRFU ---
Pt remains confused and continues to refuse most nutrition and oral fluid intake. Daughter helps with cueing when she is here and has stated he likes ensure on diet order TID. Speech saw him today and noted mild chewing impairments. Continued encouragement/cueing and reminders to chew thoroughly at meal times appreciated. Weight down 5# total t/o stay. Continuing to monitor.
[2020-07-25] VITALS (8 sets, daily range): BP systolic 126–149; BP diastolic 61–73; PULSE 75–140; RESP 18–24; TEMP 36.4–36.9; O2SAT 90–95; BMI 28.0
--- NOTE | 2020-07-25 04:04 | PC.NURSE ---
Pt is confused and restless. Alert to self at this time. Early in shift, pt knew he was at [facility]. He has not slept at all tonight. Has taken O2 NC off and telemetry off multiple times. Hand mits were placed for safety of pt. CIWA is currently 7. Pt is currently on 3L NC. O2 sats in lower 90s. Has been tachypneic at times. Lungs noted to have rhonchi to upper lobes. Scattered wheezing also noted. Breathing Tx administered per RT. He has been NSR to Sinus Tach on telemetry. Has been incontinent of urine and bowels. Face is flush. Medication administered per oct. Safety measures in place. Will continue to monitor.
--- NOTE | 2020-07-25 08:38 | HMH.ACPN2 ---
Internal Medicine - PN: Subj *Date: 07/25/20 *Time: 08:38 Interval history: Patient has been agitated and confused all night according to his daughter. He states he hurts all over this morning. He says he wants to go home. He does have mittens in place and is actively been trying to pull out tubing. He was able to drink his shake this morning. Exam Vital signs and Labs for Last 24 Hours: Temp Pulse Resp BP Pulse Ox 97.7 F 107 H 24 149/73 H 90 L 07/25/20 04:00 07/25/20 04:00 07/25/20 04:00 07/25/20 04:00 07/25/20 00:00 Laboratory Results - last 24 hr 07/24/20 07:03: Total Counted 100, Neutrophils % (Manual) 95 H, Lymphocytes % (Manual) 3 L, Monocytes % (Manual) 2, Platelet Estimate Normal, RBC Morphology Normal I & O for Last 24 hours: Intake & Output 07/22/20 07/23/20 07/24/20 07/25/20 11:59 11:59 11:59 11:59 Intake Total 785 / 785 120 / 120 480 / 480 300 / 300 Output Total 300 / 300 450 / 450 Balance 485 / 485 120 / 120 480 / 480 -150 / -150 Weight 187 lb 6.287 oz 186 lb 9 oz 185 lb 13.595 oz 185 lb - Constitutional agitated - *Routine Respiratory Exam Present: rhonchi, wheezes - *Routine Cardiovascular Exam Present: RRR - *Routine Abdominal Exam Present: soft, normoactive bowel sounds, tenderness (diffuse), distended - *Routine Extremities Exam Absent: cyanosis, clubbing, edema - *Routine Skin Exam Present: warm. Absent: rash - *Routine Neurological Exam Present: altered mental status Assessment and Plan (1) Sepsis Status: Acute Qualifiers: Sepsis type: sepsis due to unspecified organism Sepsis acute organ dysfunction status: with acute organ dysfunction Severe sepsis acute organ dysfunction type: encephalopathy Severe sepsis shock status: without septic shock Qualified Code(s): A41.9 - Sepsis, unspecified organism; R65.20 - Severe sepsis without septic shock; G93.40 - Encephalopathy, unspecified Category: Medical Code(s): A41.9 - Sepsis, unspecified organism (2) Metastatic squamous cell carcinoma Status: Acute Category: Medical Code(s): C79.9 - Secondary malignant neoplasm of unspecified site (3) Metabolic encephalopathy Status: Acute Category: Medical Code(s): G93.41 - Metabolic encephalopathy (4) Right lower lobe pneumonia Status: Acute Qualifiers: Pneumonia type: due to unspecified organism Qualified Code(s): J18.9 - Pneumonia, unspecified organism Category: Medical Code(s): J18.9 - Pneumonia, unspecified organism (5) Alcohol withdrawal Status: Acute Qualifiers: Complication of substance-induced condition: with perceptual disturbance Qualified Code(s): F10.232 - Alcohol dependence with withdrawal with perceptual disturbance Category: Medical Code(s): F10.239 - Alcohol dependence with withdrawal, unspecified - Assessment and plan all Dx Assessment and Plan for all problems:: Dr. Mena to see the patient today. Will discuss something more for agitation with Dr. Snell.
--- NOTE | 2020-07-25 13:18 | HMH.CONS ---
*Admission Date: 07/20/20 *History of present illness: 70 yo admitted for confusion and sob. ct angio done demonstrated large mediastinal mass mearsuring 7 cm. also noted bone mets to spine and liver metastasis. bx of bone lesion showed squamous cell ca. pt is very confused today. daughter and son in law in room. [facility] History Medical History: Reports:: Atherosclerotic Heart Disease, Cancer (Metastatic squamous cell carcinoma.), Chronic Obstructive Pulmonary Disease (COPD), Coronary Artery Disease, Gastroesophageal Reflux Disease(GERD), Hyperlipidemia, Hypertension Denies:: Diabetes Mellitus Type 1, Diabetes Mellitus Type 2, Internal Pacemaker, MRSA, Seizures *Have you ever received a pneumonia vaccine?: Yes *Have you received a flu vaccine this season?: No Other Medical History: Denies: Blood Transfusion Reaction, Radiation Therapy Laterality Cases: Bilateral: Carotid Endarterectomy, Tonsillectomy Other Surgeries: Yes: Angiogram, Appendectomy, Cardiac Catheterization, Colonoscopy, Coronary Stent, EGD, Other. No: Pacemaker Amputation: No Fractures: No - *Social History Smoking Status: Former smoker (Last smoked 10 years ago.) Tobacco Type: cigarettes Alcohol Intake: never Alcohol Intake Frequency:: 3 or more drinks per day Substance Use Type: denies use *Occupational Status:: disabled Housing: house Household Members: none *Travel in the last 8 weeks: None Family Hx:: Unable to obtain Review of Systems - Review of Systems Review of systems:: unable to obtain unable to obtain due to confusion - *Neurologic Reports behavioral changes, Reports confusion, Reports weakness Meds Home Medications Medication Instructions Recorded Confirmed Type aspirin 81 mg tablet,delayed 81 mg PO DAILY 09/17/17 07/21/20 History release albuterol sulfate 90 mcg/actuation 1 inh INHALATION QID PRN #8.5 g 06/26/20 07/20/20 Rx aerosol inhaler Amlodipine Besylate [Amlodipine 10 mg PO DAILY 07/17/20 07/20/20 History 10mg Tab] Atorvastatin Calcium [Lipitor] 40 mg PO DAILY 07/17/20 07/20/20 History Clopidogrel Bisulfate [Plavix] 75 mg PO DAILY 07/17/20 07/20/20 History Omeprazole 40 mg PO DAILY 07/17/20 07/20/20 History Ropinirole HCl 3 mg PO HS 07/17/20 07/21/20 History Triamterene/Hydrochlorothiazid 1 tab PO DAILY 07/17/20 07/20/20 History [Maxzide-25 tablet] bisoproloL fumarate [Bisoprolol 5 mg PO DAILY 07/17/20 07/20/20 History Fumarate] Tramadol HCl [Tramadol 50mg 50 mg PO TIDP PRN 07/20/20 07/21/20 History Tab] Allergies Allergy/AdvReac Type Severity Reaction Status Date / Time No Known Allergies Allergy Verified 07/20/20 17:28 Exam Vital signs and Labs for Last 24 Hours: Temp Pulse Resp BP Pulse Ox 98.4 F 75 20 142/69 H 90 L 07/25/20 12:00 07/25/20 12:00 07/25/20 12:00 07/25/20 12:00 07/25/20 12:00 I & O for Last 24 hours: Intake & Output 07/23/20 07/24/20 07/25/20 07/26/20 11:59 11:59 11:59 11:59 Intake Total 120 / 120 480 / 480 540 / 540 Output Total 450 / 450 Balance 120 / 120 480 / 480 90 / 90 Weight 186 lb 9 oz 185 lb 13.595 oz 185 lb - *Routine Respiratory Exam Present: distant breath sounds Internal Medicine - CN: Reslt - Labs CBC & Chem 7: 07/24/20 07:03 07/24/20 07:03 - ABG Interpretation ABG results: 07/20/20 07/22/20 18:33 14:23 ABG pH 7.45 7.46 H ABG pCO2 33.4 L 34.3 L ABG pO2 67.4 L 61.5 L ABG HCO3 22.9 23.6 ABG Total CO2 23.9 24.7 ABG O2 Saturation 94 91 ABG Base Excess -1.0 -0.3 Assessment and Plan (1) Sepsis Status: Acute Qualifiers: Sepsis type: sepsis due to unspecified organism Sepsis acute organ dysfunction status: with acute organ dysfunction Severe sepsis acute organ dysfunction type: encephalopathy Severe sepsis shock status: without septic shock Qualified Code(s): A41.9 - Sepsis, unspecified organism; R65.20 - Severe sepsis without septic shock; G93.40 - Encephalopathy,
--- NOTE | 2020-07-25 13:37 | SW/DCPLANNER ---
Addendum entered by Isabela Key 07/26/20 11:25: Dr Snell will discharge this patient home today with Hospice services. Patients daughter (Derik) is agreeable with this plan. I have spoke with Shantelle with Hospice whom stated all DME will be delivered to patients home today around 1:30PM. Family has no further questions/concerns at this time. Addendum entered by Isabela Key 07/25/20 15:33: I have provided a sitters list to this family and presented the option of placement. Family stated they will make a decision. I have made it known that patient could be ready for discharge tomorrow since Hospice services are available. Addendum entered by Isabela Key 07/25/20 15:13: Shantelle has spoke with family and stated that family is leaning towards discharging home with patient and Hospice services. Family stated they had one more family member they would need to speak with prior to making this decision. I will follow up with family, Shantelle and in the AM. Addendum entered by Isabela Key 07/25/20 14:50: Shantelle with Hospice is here to evaluate this patient. Family is present in patients room at this time. Original Note: I have received a Hospice referral for this patient. Patient information has been faxed to [facility]. I have spoke with Aimee with Hospice and she will review referral then call me regarding a computer help desk representative visiting this patient.
--- NOTE | 2020-07-25 18:25 | PC.NURSE ---
Patient is resting in recliner. Patient has had no changes neurologically, still confused and occasionally pulls off his oxygen. No longer wearing mitt's that he was wearing at the beginning of the shift. Chair alarm is on patient. Patient did request nurse speak to him regarding his condition as he could not remember why he was there. Patients family along with patient spoke with hospice nurse today and the intention is to go home tomorrow with hospice care, family has agreed to stay with patient in rotating schedules. Patient has had a diminished appetite, no n/v/d. Patient has used bedside commode today and is an assist x 2 to get to the commode, is very weak on his feet. Patient is still using 2l of oxygen. Non-productive cough is present. Will continue to monitor patient.
--- NOTE | 2020-07-25 18:43 | PC.NURSE ---
pt sitting in chair with safety in place.
[2020-07-26] VITALS: BP 178/85; PULSE 108; RESP 29; TEMP 36.8; O2SAT 91
--- NOTE | 2020-07-26 01:21 | PC.NURSE ---
pt trying to get oob took o2 off and wont put on .combative. adán edwards ,daughter,called and told of pts condition. she stated she would come in.
--- NOTE | 2020-07-26 05:28 | PC.NURSE ---
Pt was A&O x1 to person. Pt was very confused and combative for much of the night. 4 nurses were needed at one point to restrain the pt from getting out of bed. Pt is a total assist and ambulating posed a huge safety hazard. Due to the pt being completely uncooperative and combative with staff, mitts were applied. Pt daughter was called during the night and agreed to come sit with the patient, she was concerned of his condition and requested the pt be given something to calm him. A dose of Ativan IM was administered per MD Rosie. After administration, pt calmed down and was able to rest. Neurologically, the pt has had no other new changes and remains confused. Pt was in normal sinus upon lastest telemetry strip. Lungs had course crackles and wheezing, pt O2 was 92 on 3 lpm. Pt refused neb treatment. Pt is currently resting soundly with call light in reach and bed alarm on. Will continue to monitor.
[2020-07-26 08:00] VITALS: BP 149/71; PULSE 88; RESP 20; TEMP 36.4; O2SAT 97
--- NOTE | 2020-07-26 08:55 | HMH.ACPN2 ---
Internal Medicine - PN: Subj *Date: 07/26/20 *Time: 08:55 Interval history: The patient is more oriented this morning. He is able to answer questions and is calm. He states he has no pain other than his hand that he hit on the railing of his bed. He is still short of breath and wheezing. He has been able to drink his Ensure this morning. Exam Vital signs and Labs for Last 24 Hours: Temp Pulse Resp BP Pulse Ox 97.6 F 88 20 149/71 H 97 07/26/20 08:00 07/26/20 08:00 07/26/20 08:00 07/26/20 08:00 07/26/20 08:00 I & O for Last 24 hours: Intake & Output 07/23/20 07/24/20 07/25/20 07/26/20 11:59 11:59 11:59 11:59 Intake Total 120 / 120 480 / 480 540 / 540 480 / 480 Output Total 450 / 450 Balance 120 / 120 480 / 480 90 / 90 480 / 480 Weight 186 lb 9 oz 185 lb 13.595 oz 185 lb Microbiology Reports for the Last 24 Hours: Microbiology 07/20/20 17:29 Blood Blood Culture - Final NO GROWTH AFTER 5 DAYS 07/20/20 17:29 Blood Blood Culture - Final NO GROWTH AFTER 5 DAYS - Constitutional no acute distress Comments: less agitated - *Routine Respiratory Exam Present: rhonchi, wheezes - *Routine Cardiovascular Exam Present: RRR - *Routine Abdominal Exam Present: soft, normoactive bowel sounds, distended. Absent: tenderness - *Routine Extremities Exam Absent: cyanosis, clubbing, edema - *Routine Skin Exam Present: warm. Absent: rash - *Routine Neurological Exam Present: alert calm and able to answer questions this am Assessment and Plan (1) Sepsis Status: Acute Qualifiers: Sepsis type: sepsis due to unspecified organism Sepsis acute organ dysfunction status: with acute organ dysfunction Severe sepsis acute organ dysfunction type: encephalopathy Severe sepsis shock status: without septic shock Qualified Code(s): A41.9 - Sepsis, unspecified organism; R65.20 - Severe sepsis without septic shock; G93.40 - Encephalopathy, unspecified Category: Medical Code(s): A41.9 - Sepsis, unspecified organism (2) Metastatic squamous cell carcinoma Status: Acute Category: Medical Code(s): C79.9 - Secondary malignant neoplasm of unspecified site (3) Metabolic encephalopathy Status: Acute Category: Medical Code(s): G93.41 - Metabolic encephalopathy (4) Right lower lobe pneumonia Status: Acute Qualifiers: Pneumonia type: due to unspecified organism Qualified Code(s): J18.9 - Pneumonia, unspecified organism Category: Medical Code(s): J18.9 - Pneumonia, unspecified organism (5) Alcohol withdrawal Status: Acute Qualifiers: Complication of substance-induced condition: with perceptual disturbance Qualified Code(s): F10.232 - Alcohol dependence with withdrawal with perceptual disturbance Category: Medical Code(s): F10.239 - Alcohol dependence with withdrawal, unspecified - Assessment and plan all Dx Assessment and Plan for all problems:: The patient was seen by Dr. Mena yesterday. The family has decided to take him home with hospice. Will discuss with Dr. Snell.
--- NOTE | 2020-07-26 10:30 | HMH.ACPN ---
Internal Medicine - PN: Subj *Date: 07/26/20 *Time: 10:31 Exam Vital signs and Labs for Last 24 Hours: Temp Pulse Resp BP Pulse Ox 97.6 F 88 20 149/71 H 97 07/26/20 08:00 07/26/20 08:00 07/26/20 08:00 07/26/20 08:00 07/26/20 08:00 I & O for Last 24 hours: Intake & Output 07/23/20 07/24/20 07/25/20 07/26/20 23:59 23:59 23:59 23:59 Intake Total 480 / 480 300 / 300 600 / 720 600 / 600 Output Total 450 / 450 Balance 480 / 480 -150 / -150 600 / 720 600 / 600 Weight 84.623 kg 84.3 kg 83.915 kg Microbiology Reports for the Last 24 Hours: Microbiology 07/20/20 17:29 Blood Blood Culture - Final NO GROWTH AFTER 5 DAYS 07/20/20 17:29 Blood Blood Culture - Final NO GROWTH AFTER 5 DAYS Assessment and Plan (1) Sepsis Status: Acute Qualifiers: Sepsis type: sepsis due to unspecified organism Sepsis acute organ dysfunction status: with acute organ dysfunction Severe sepsis acute organ dysfunction type: encephalopathy Severe sepsis shock status: without septic shock Qualified Code(s): A41.9 - Sepsis, unspecified organism; R65.20 - Severe sepsis without septic shock; G93.40 - Encephalopathy, unspecified Category: Medical Code(s): A41.9 - Sepsis, unspecified organism (2) Metastatic squamous cell carcinoma Status: Acute Category: Medical Code(s): C79.9 - Secondary malignant neoplasm of unspecified site (3) Metabolic encephalopathy Status: Acute Category: Medical Code(s): G93.41 - Metabolic encephalopathy (4) Right lower lobe pneumonia Status: Acute Qualifiers: Pneumonia type: due to unspecified organism Qualified Code(s): J18.9 - Pneumonia, unspecified organism Category: Medical Code(s): J18.9 - Pneumonia, unspecified organism (5) Alcohol withdrawal Status: Acute Qualifiers: Complication of substance-induced condition: with perceptual disturbance Qualified Code(s): F10.232 - Alcohol dependence with withdrawal with perceptual disturbance Category: Medical Code(s): F10.239 - Alcohol dependence with withdrawal, unspecified The patient's infection will respond to the chosen ABx?: Yes Is the patient receiving the right drug, dose, and route?: Yes Could a more targeted ABx be ordered?: No
[2020-07-26 12:00] VITALS: BP 145/72; PULSE 89; RESP 18; TEMP 36.9; O2SAT 92
--- NOTE | 2020-07-26 13:12 | SW/DCPLANNER ---
PATIENT IS DISCHARGING HOME WITH HOSPICE THIS AFTERNOON... HIS HOSPICE NURSE IS [facility].. THE DAUGHTER HAS REQUESTED TO TAKE HIM HOME VIA CAR INSTEAD OF AMBULANCE.. SHE STATED SHE PREFERS TO TAKE HIM.. I HAVE ASKED THE NURSE TO TELL HIS DAUGHTER TO LET HIS HOSPICE NURSE KNOW TO MEET THEM AT THE HOUSE...
--- NOTE | 2020-07-26 14:45 | HMH.DCSUM ---
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 He presented in the emergency room at [facility] last night with complaints of confusion and visual hallucinations. His white count was elevated and there was evidence of sepsis. He was admitted for further evaluation and IV antibiotics. With his history of alcoholism appropriate protocols were placed. He was brought to the emergency room by his daughter. He had a tissue diagnosis from a T3 lesion biopsy on July 17 under fluoroscopy. This was performed by Dr. Sullivan at [facility]. He has a referral to oncology scheduled. He has been seen by Dr. Hand, pulmonology. Hospital Course Hospital Course: The patient's initial chest x-ray showed a right upper and right lower lobe pneumonia. He had a chest CT showing a large mediastinal and right hilar mass with some narrowing of the right main pulmonary artery, right upper lobe pulmonary artery, and increased clearing of the right bronchus intermedius. There was hepatic metastasis and metastasis to the T3 and T4 vertebral bodies. He had a head CT showing nothing acute. He also had a KUB showing nonspecific nonobstructive bowel gas pattern. He was admitted and started on IV antibiotics. Lorazepam was ordered regarding his possible alcohol withdrawal. Risperidone was added due to his hallucinations. He was quite sedated after getting this medication, therefore his lorazepam was discontinued. He then became very agitated and oxazepam was added. The patient remained confused and restless. He was trying to pull out his tubing. He developed an increased heart rate of 150 bpm which then slowed to 100 bpm and then decreased into the 90s. His monitor showed sinus rhythm and his blood pressures were stable. He also ran a low-grade fever. He choked on some of his medications, therefore a modified swallowing test was ordered. His white blood cell count decreased on IV antibiotics. His blood culture showed no growth. He was started on oxazepam 15 mg every 6 hours and Risperdal 0.5 mg twice daily. DuoNeb's were also added and a repeat chest x-ray was ordered. It showed worsening right-sided pneumonia. The patient's modified barium swallow showed early spillage with stasis and difficulty with mastication. There was no aspiration. The patient remained confused and agitated off and on throughout his stay. By 07/25/2020, he was able to at least drink some of an Ensure shake. Dr. Mena was consulted to see the patient. She felt due to his metastasis to the bone, liver, and lymph nodes, the patient had a poor prognosis. She did not recommend chemotherapy but did recommend hospice. The patient's family discussed and was in agreement that he could be discharged home with hospice. By 07/26/2020 he was slightly more oriented and calm. He was able to answer questions and stated he had no pain. He was still short of breath and wheezing. His white blood cell count did improve throughout his stay and his electrolytes improved as well. He was stable to be discharged home with hospice. Objective Vital signs: Temp Pulse Resp BP Pulse Ox 98.5 F 89 18 145/72 H 92 L 07/26/20 12:00 07/26/20 12:00 07/26/20 12:00 07/26/20 12:00 07/26/20 12:00 Narrative: - Constitutional mild distress - *Routine HEENT Exam Head: Present: normocephalic Eye: Present: PERRL ENT: Present: mucous membranes moist - *Routine Respiratory Exam Present: decreased breath sounds (Moving air). Absent: respiratory distress - *Routine Cardiovascular Exam Present: RRR - *Routine Abdominal Exam Present: soft, distended - *Routine Extremities Exam Absent: edema - *Routine Neurological Exam Present: alert (Actually describes his visual hallucinations), altered
== END 2020-07-26 14:30 | disposition hospice, home (50) | DRG 853 ==
LOC: ER 19:14 → 2ND 21:34
PROVIDERS: Nurse Practitioner Family; Admitting Provider Family Medicine; Emergency Provider Emergency Medicine; PCP Family Medicine; Visit Provider Family Medicine
DX: A41.9 Sepsis, unspecified organism (principal); J18.9 Pneumonia, unspecified organism; G93.40 Encephalopathy, unspecified; F10.232 Alcohol dependence with withdrawal with perceptual disturbance; C34.90 Malignant neoplasm of unspecified part of unspecified bronchus or lung; C77.9 Secondary and unspecified malignant neoplasm of lymph node, unspecified; C78.7 Secondary malignant neoplasm of liver and intrahepatic bile duct; C79.51 Secondary malignant neoplasm of bone; R65.20 Severe sepsis without septic shock; Z87.891 Personal history of nicotine dependence; Y90.0 Blood alcohol level of less than 20 mg/100 ml; I25.10 Atherosclerotic heart disease of native coronary artery without angina pectoris; I10 Essential (primary) hypertension; J44.9 Chronic obstructive pulmonary disease, unspecified; E78.5 Hyperlipidemia, unspecified; Z79.82 Long term (current) use of aspirin; Z79.01 Long term (current) use of anticoagulants; Z79.51 Long term (current) use of inhaled steroids; Z79.899 Other long term (current) drug therapy; Z95.5 Presence of coronary angioplasty implant and graft
CPT/HCPCS: 21550; 36415; 70371; 70450; 71045; 71046; 71260; 74018; 77012; 80048; 80053; 80305; 81001; 82140; 82803; 83605; 83690; 83880; 84443; 84484; 85007; 85025; 85610; 85730; 86328; 87040; 88173; 88305; 88307; 88333; 88342; 92610; 92611; 93005; 94640; 94761; 96365; 96366; 96367; 96375; 99284; J0456; Q9967